=== PATIENT | male | born 1975 | race Caucasian/White ===

== ENCOUNTER → 2025-06-19 | Outpatient (CLI) | payer OTHER, SELFPAY ==
--- OUTSIDE RECORDS SUMMARY | 2025-06-19 07:32 | XMS RPT_ITS | CCD ---
Author Organization [facility] Care Team Providers Care Outsole Caser Name Role Phone [facility], [facility] A Unavailable Ronn Okeefe MD Unavailable [phone] Nikki Potts MD Primary Care Provider Nikki Potts MD Unavailable Nikki Potts MD Unavailable [facility], Chata A Unavailable [phone] Ronn Okeefe MD Unavailable [phone] Nikki Potts MD Primary Care Provider [facility], Chata Alex Unavailable [phone] Ronn Okeefe MD Unavailable Nikki Potts MD Primary Care Provider [phone] Nikki Potts MD Unavailable REFERRED, SELF Referring Unavailable CRISSY, REINALDO Attending Unavailable LUIS, NIKKI K Primary Care Unavailable CRISSY, REINALDO Referring Unavailable CRISSY, REINALDO Attending Unavailable LUIS, NIKKI K Primary Care Unavailable LUIS, NIKKI K Referring Unavailable LUIS NIKKI K Attending Unavailable NAM, INKKI K Primary Care Unavailable BALDIE, BRENNON Primary Care Unavailable BALDIE, BRENNON Attending Unavailable SELF Referring Unavailable BALDIE, BRENNON Primary Care Unavailable NEUMANN, EDWARD Attending Unavailable NEUMANN, EDWARD Attending Unavailable NEUMANN, EDWARD Attending Unavailable NEUMANN, EDWARD Attending Unavailable NEUMANN, EDWARD Attending Unavailable NEUMANN, EDWARD Admitting Unavailable NEUMANN, EDWARD Attending Unavailable BALDIE, BRENNON Primary Care Unavailable NEUMANN, EDWARD Attending Unavailable Medications Current Medications Medication Drug Class(es) Dates Sig (Normalized) Sig (Original) ascorbic acid 125 mg chewable tablet (11 sources) Vitamin C ascorbic acid, v itamin C, 125 mg chew Active Calcium Carbonate Antacid (TUMS PO) (6 sources) Calcium Carbonat e Antacid (TUMS PO) Take by mouth as needed. Active Calcium Carbonat e Antacid (TUMS PO) Take by mouth as needed. 0 Active calcium citrate/vitamin D3 ( CALCIUM CITRATE + D ORAL) (11 sources) calcium citrate/ vitamin D3 (CALCIUM CITRATE + D ORAL) Active calcium citrate/ vitamin D3 (CALCIUM CITRATE + D ORAL) [id number] 0.3 ml EPINEPHrine 1 mg/ml auto-injector (6 sources) alpha-Adrenergic Agonist, beta-Adrenergic Agonist, Catecholamine Start: 06-08-2019 EPINEPHrine 0.3 MG injection Inject 1 Auto-Injector (0.3 mg) into the muscle once as needed for Allergies 4 Each 1 06/08/2019 Active famotidine 20 mg oral tablet (5 sources) Histamine-2 Receptor Antagonist take 1 tablet by mouth twice daily famotidine (PEPCID) 20 mg tablet Take 20 mg by mouth two times a day. Active loratadine 10 mg oral tablet (13 sources) End: 07-30-2024 take 1 tablet by mouth once daily loratadine (CLARITIN) 10 MG tablet Take 10 mg by mouth daily. Active Comment on above: Take 10 mg by mouth. ofloxacin 3 mg/ml otic solution (5 sources) Quinolone Antimicrobial Start: 11-23-2024 ofloxacin (FLOXIN) 0.3 % otic solution Use 5 drops in both ears every other day. 10 mL 11/23/2024 Active Start: 07-21-2024 End: 08-18-2024 ofloxacin (FLOXIN) 0.3 % sujata c solution Use 5 Drops in the right ear two times a day for 28 days. 10 mL 2 07/21/2024 08/18/2024 Active ofloxacin (FLOXI N) 0.3 % otic solution Use 5 drops in both ears every other day. Active raNITIdine 150 mg oral tablet (6 sources) Histamine-2 Receptor Antagonist take 1 tablet by mouth once daily ranitidine (ZANTAC) 150 MG tablet Take 150 mg by mouth daily. Active Completed/Discontinued Medications Medication Drug Class(es) Dates Sig (Normalized) Sig (Original) omeprazole 20 mg delayed release oral capsule (13 sources) Proton Pump Inhibitor Start: 04-08-2022 End: 07-30-2024 take 1 capsule by mouth once daily omeprazole (PRILOSEC) 20 mg capsule Take 1 capsule by mouth once daily. 90 capsule 3 04/08/2022 07/30/2024 Discontinued (Course of therapy completed) End: 07-30-2024 omeprazole (PRILOSEC) 40 mg capsule 07/30/2024 Discontinued (Course of therapy completed) Comment on above: Take 1 capsule by [facility] once daily. polyethylene glycol 3350 [id number] mg / potassium chloride 2970 mg / sodium bicarbonate 6740 mg / sodium chloride 5860 mg / sodium sulfate 15513 mg powder for oral solution (5 sources) Osmotic Laxative Start: 10-02-2022 End: 07-30-2024 peg 3350-Electrolytes (GOLYTELY) 236-22.74-6.74 -5.86 gram suspension Refer to printed patient instructions that will be mailed to you. 1 Each 10/02/2022 07/30/2024 Discontinued (Course of therapy completed) Comment on above: Refer to printed pat ient instructions that will be mailed to you. Problems Active Problems Problem Classification Problem Date Documented Da te Episodic/Chronic Administrative/social admission (1 source) Persons encountering health services in other specified circumstances; Translations: [Encounter to establish care with new doctor] Onset: Episodic Calculus of urinary tract (1 source) Calculus of lower urinary tract; Translations: [Calculus of lower urinary tract, unspecified] 04-13-2024 Episodic Esophageal disorders (1 source) Gastroesophageal reflux disease; Translations: [Gastro-esophageal reflux disease without esophagitis] 01-21-2023 Chronic Immunizations and screening for infectious disease (1 source) Suspected disease caused by 2019-nCoV; Translations: [Suspected COVID-19 virus infection] Episodic Other acquired deformities (1 source) Scoliosis, unspecified; Translations: [Scoliosis of thoracolumbar spine, unspecified scoliosis type] Onset: 5 Chronic Other congenital anomalies (1 source) Other congenital malformations of upper limb(s), including shoulder girdle; Translations: [Cleidocranial dysplasia] Onset: 5 Chronic Other ear and sense organ disorders (1 source) Conductive hearing loss, unilateral, right ear with restricted hearing on the contralateral side; Translations: [Conductive hearing loss of right ear with restricted hearing of left ear] Onset: 5 Chronic Other ear and sense organ disorders (5 sources) Cholesteatoma of external ear; Translations: [Cholesteatoma of right external ear] 07-21-2024 Episodic Other ear and sense organ disorders (1 source) Impacted cerumen of bilateral ears; Translations: [Impacted cerumen, bilateral] 03-01-2025 Episodic Other ear and sense organ disorders (2 sources) Cholesteatoma of right external ear; Translations: [Cholesteatoma of right external ear] Onset: 5 Episodic Other ear and sense organ disorders (1 source) Impacted cerumen, left ear; Translations: [Impacted cerumen of left ear] Onset: 5 Episodic Other gastrointestinal disorders (5 sources) Esophageal dysphagia; Translations: [Other dysphagia] Episodic Other non-traumatic joint disorders (2 sources) Hip pain; Translations: [Pain in left hip] 02-26-2023 Episodic Other screening for suspected conditions (not mental disorders or infectious disease) (5 sources) Patient encounter status; Translations: [Encounter for screening for malignant neoplasm of colon] Onset: 5 Episodic Rheumatoid arthritis and related disease (1 source) Juvenile idiopathic arthritis; Translations: [Other juvenile arthritis, unspecified site] 04-13-2024 Chronic Screening and history of mental health and substance abuse codes (2 sources) Encounter for screening examination for other mental health and behavioral disorders; Translations: [Encounter for screening for depression] Onset: 5 Episodic Past or Other Problems Problem Classification Problem Date Documented Da te Episodic/Chronic NEGATED: Highlighted row has been ruled out!Unclassified (6 sources) No known active problems 06-09-2019 Results Test Name Value Interpretation Reference Range Facility CNOVon 04-26-2025 CNOV Office Visit (AGFAMP SS) -- FLAKITO AMAYA ([id number]) 1975 M Date Time Provider Department 04/26/25 10:40 AM BRENNON MORRELL During your visit today, we recorded the following information about you: Temperature Pulse Blood pressure Weight 97.9 degrees 72/minute 138/78 55.5 kg Height 1.575 m Brennon Morrell MD 04/26/2025 11:34 AM Signed - A community education coordinator will contact you to arrange your baseline DEXA (bone density) scan; if you do not hear from them within a few days, please call the scheduling center. - Get a fasting blood test (lipid panel, comprehensive metabolic panel, and complete blood count) two weeks before your next annual physical--fast except for water. - Return in one year for your annual physical and to review your lab results. - Plan your next colonoscopy in 10 years (your last exam was in 2022). - Receive one dose of pneumococcal vaccine (Pneumovax) now and begin the two-dose Shingrix (shingles) series--second dose in 2 to 6 months. - Aim for at least 2 liters (64 ounces) of water daily; for each hour of running or heavy sweating, drink an additional liter (two 16-ounce bottles). - Strive for 150 minutes of moderate-intensity activity (e.g., brisk walking) or 75 minutes of running each week, plus strength training on two days per week. Please feel free to reach out with any questions. Have a great day! 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 Flakito Amaya is a 49-year-old male with a history of cholesteatoma, EoE, and cleidocranial dysplasia, presenting for an initial visit to establish care. Cholesteatoma: - Diagnosed with cholesteatoma in the right ear canal, managed by Dr. Neumann, ENT, for about a year. - Undergoing debridement; condition has improved but still has a small patch of exposed bone. - Scheduled for OR on June 05 for bone removal and skin graft. - History of multiple ear surgeries, including 8 sets of tubes. Eosinophilic Esophagitis: - Previously diagnosed with EoE, managed by OCHOA García. - Released from follow-up by Dr. Foote. - Following a gluten-free and egg-free diet, reports feeling well on this diet. - Taking Pepcid. 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 - History of multiple extra teeth, including an impacted wisdom tooth causing periodic infections. - Underwent a procedure to clean out the area around the impacted tooth 3-4 years ago, with no issues since. - Concerned about osteonecrosis of the jaw due to bisphosphonate use. 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 - No current issues related to JRA. Lichen Planus: - Diagnosed with lichen planus, causing hair loss but no significant problems. Scoliosis: - Suspected scoliosis related to cleidocranial dysplasia, but no significant issues reported. - Son has severe scoliosis and underwent spinal fusion. Lifestyle: - Engages in trail running with his son, running 4-5 miles a couple of times a week. - Follows a diet primarily consisting of vegetables, fruits, and rice, avoiding animal products and gluten. - Drinks 6-8 glasses of water daily, with additional intake before running. - Takes vitamin D and calcium supplements, with a current vitamin D level of 70. Family: - with an 18-year-old daughter and a 16-year-old son. - Brother is a physician. COVID-19: - Received initial two-dose series of Moderna vaccine and one booster. - Contracted COVID-19 twice, most recently about a year ago. Review of Systems Skin: (+) alopecia PAST MEDICAL HISTORY Diagnosis Date Cleidocranial dysostosis AKA Cleidocranial dysplasia. 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 SOCIAL HISTORY[1] multivit,thx,calcium,iron, mins (MULTIVITAMIN AND MINERAL ORAL) Take 1 tablet by mouth once daily. 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 loratadine 10 mg cap as needed. calcium carbonate (TUMS 500 ORAL) Take by mouth as needed. famotidine (PEPCID) 20 (more content not included)... Normal [facility] CNOVon 04-06-2025 CNOV Office Visit (OTOLMN ) -- FLAKITO AMAYA ([id number]) 1975 M Date Time Provider Department 04/06/25 4:30 PM EMANUEL NEUMANN OTOLMN During your visit today, we recorded the following information about you: Emanuel Neumann MD 05/06/2025 2:39 PM Signed Neurotology Clinic - Return Visit Flakito Amaya He notes occasional discharge of wax or exudate during washing, but denies any changes in hearing since the last visit, stating it has improved on the right side. The patient has a complex otologic history, including multiple tympanostomy tube placements (approximately eight) and a previous tympanic membrane perforation last year secondary to a sinus infection, which was treated with antibiotics, resulting in resolution of purulent otorrhea. His last audiogram was in 2020. Objective: AANDO Ears: Right ear - EAC clear, Exposed bone remains present on anterior and inferior aspect of ear canal. Neuro - Cranial Nerves: Right CN 7 - HB 1 Left CN 7 - HB 1 Unlabored respirations, no audible respiratory sounds/stridor Skin well perfused PROCEDURE NOTE: Otomicroscopy A microscope was used to evaluate the ears. Micro-instruments (curettes and/or suction) were used to clean the ear canal and obtain a clear view of the tympanic membranes. All relevant findings are detailed in the Physical Exam findings as listed above. The patient tolerated the procedure well and there were no complications. 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 - Scheduled right-sided canaloplasty and split-thickness skin graft on June 05 at [place]. - Discussed procedure details, including smoothing of bone, possible small incision, and skin graft placement; explained that the procedure is expected to take less than 90 minutes. - Reviewed risks, including low risk to facial nerve, and use of facial nerve monitoring during surgery; patient expressed understanding and agreement with the plan. - Advised to keep ear dry postoperatively until follow-up; discussed expected recovery timeline and minimal expected drainage. - Follow-up appointment scheduled for a couple of weeks after surgery. # Conductive hearing loss of right ear with restricted hearing of left ear (H90.A11) No changes in hearing since last visit; improvement noted on the right side since starting treatment. CT scan of right ear shows a linear band of scar tissue from the incus past the IS joint, possibly contributing to conductive hearing loss. - Ordered audiogram prior to surgery; requisition provided. - Discussed possibility of middle ear exploration and tympanoplasty, but agreed to avoid additional procedures unless necessary. Emanuel Neumann III, MD Recording using [employer] software for draft documentation of the visit was discussed with the patient/authorized passenger service representative; all questions welcomed and answered. Patient/authorized passenger service representative agreed to proceed Allergies As of Date: 04/06/2025 (No Known Allergies) Date Reviewed: 04/06/2025 Reviewed by: Alka Lamas RN - Fully Assessed Reason for Visit: Follow Up [171] Cmt: Cholesteatoma Primary Visit Diagnosis:Cholesteatoma of right external auditory canal [H60.41] Other Visit Diagnosis:Conductive hearing loss of right ear with restricted hearing of left ear [H90.A11] Order(s):HEARING TEST/AUDIOGRAM [[id number]] Order #: [id number]: 1 FUTURE Prescriptions as of 05/06/2025 - multivit,thx,calcium,iron, mins (MULTIVITAMIN AND MINERAL ORAL) Take 1 tablet by mouth once daily. 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 - loratadine 10 mg cap as needed. - calcium carbonate (TUMS 500 ORAL) Take by mouth as needed. - ofloxacin (FLOXIN) 0.3 % otic solution Use 5 drops in both ears every other day. - famotidine (PEPCID) 20 mg tablet Take 20 mg by mouth two times a day. - ascorbic acid, vitamin C, 125 mg chew - calcium citrate/vitamin D3 (CALCIUM CITRATE + D ORAL) Problem List As Of Date: 04/06/2025 (None) Encounter Status:Closed by EMANUEL NEUMANN on 05/06/25 [facility] CNOVon 02-27-2025 CNOV Office Visit (OTOLMN ) -- FLAKITO AMAYA ([id number]) 1975 M Date Time Provider Department 02/27/25 2:00 PM EMANUEL NEUMANN OTOLMN During your visit today, we recorded the following information about you: Leni Nicholson RN 03/01/2025 4:07 AM Signed Tobacco Use: Never Was smoking cessation packet given? N/A - Patient is a non-smoker or quit >1 year ago. Was a referral initiated?N/A Patient is a non-smoker Emanuel Neumann MD 03/01/2025 4:07 AM Signed Neurotology Clinic - Return Visit Flakito Amaya 49 yo male with h/o cholesteatoma s/p previous tympanoplasty who was found to have an external auditory canal cholesteatoma. I have been treating him since July of 2024. Denies drainage, pain, changes in hearing. Has returned to swimming, has been using drops once daily. Objective: AANDO Ears: Area of exposed bone in right ear canal has decreased in size, about 4x 4 mm in size measured with curette. Area of crusted cerumen over bone removed, some purulence seen. Debrided over bone with curette. No evidence of canal cholesteatoma. Some evidence of bone cortex erosion worsening. Tm membrane intact. Ciprodex drops instilled. Left ear examined. Minimal cerumen removed. TM normal. Neuro - Cranial Nerves: Right CN 7 - HB 1 Left CN 7 - HB 1 Unlabored respirations, no audible respiratory sounds/stridor Skin well perfused PROCEDURE NOTE: Cerumen Debridement A microscope was used to evaluate the ears. The right ear was found to be impacted with CERUMEN. Micro-instruments (curettes and/or suction) were used to clean the ear canal and obtain a clear view of the tympanic membranes. All relevant findings are detailed in the Physical Exam findings as listed above. The patient tolerated the procedure well and there were no complications. 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 Bilateral cerumen impaction present. Stop daily drops Recommend 50/50 vinegar and water to wash out right ear, if painful dilute more. Follow up in 4-6 weeks, if evidence of continuing bony cortex erosion or no improvement, discussed would recommend going to OR to freshen bony edges and place skin graft (post auricular). We will put in case request now to hold slot for Estefanía. MD Amanda Cordero III, MD for the service of Emanuel Neumann MD I performed a history, reviewed bergman exam findings and diagnostic studies, and discussed management plan with the resident. I reviewed the resident's note and agree with the documented findings and plan of care. 4:05 AM 03/01/2025 MD Biuj Elmore Margaret M, MD 02/27/2025 2:50 PM Addendum Perform twice daily douches for the first week. Then perform once daily douches for the second week. Then perform a douche every other day for the third and fourth weeks. You have been asked to irrigate your ear. The irrigation cleans out debris and coats your ear with a mild acidic solution that is similar to your body's natural ear wax, which acts as a natural cleansing solution that will help your ear to heal and keep clean. Steps for irrigation: 1. Mix ordinary white distilled vinegar with an equal amount of warm tap water to give a 50:50 mixture. The temperature should be body temperature and feel warm to the skin, such as with a baby bottle (98.6 degrees F or 37 degrees C). If the temperature is not at body temperature the irrigation may make you dizzy. This is not dangerous and will pass quickly but may make you uncomfortable in the meantime. 2. Place the mixture into a rubber bulb syringe, such as the type used for cleaning infants' noses and mouths (this can easily be obtained at any pharmacy). Most syringes will hold 1 or [address] the nozzle of the syringe at the opening of your ear without inserting it deeply into the ear canal. A firm irrigation is appropriate without trying to be excessively forceful. Hold the ear to be rinsed DOWNWARD (unlike placing drops, in which case the ear is held upward), so that as you rinse your ear, the water and any debris will fall out of your ear. Use the entire contents of the bulb syringe, and then allow the ear to drip dry for a few seconds. 4. If you have also been prescribed ear drops, this is an excellent time to place them, since the ear has been cleaned. The ear can now be turned upwards and the ear drops placed. Allergies As of Date: 02/27/2025 (No Known Allergies) Date Reviewed: 02/27/2025 Reviewed by: Leni Nicholson RN - Fully Assessed Reason for Visit: Follow Up [171] Primary Visit Diagnosis:Cholesteatoma of right external auditory canal [H60.41] Other Visit Diagnosis:Bilateral impacted cerumen [H61.23] Order(s):SURGICAL REQUEST - ELECTIVE (02/2020) [[id number]] Order #: [id number]: 1 Prescriptions as of 03/01/2025 - ofloxacin (JACK (more content not included)... Normal [facility] Progress Noteon 02-15-2025 Windlasser Authentication Interface Message Text New Reason for Visit: Chief Complaint Patient presents with Knee Pain Right knee pain Allergies: Patient has no known allergies.. Medications: Encounter Medications[1] History of Present Illness Flakito Amaya is a 49 y.o. presenting with right knee pain Accompanied By: self Location of injury: medial joint line, pes anserine Mechanism: patient noticed pain during hiking then afterwards pain worsened Duration/Date: approximately 5 days Symptoms: pain, some grinding Worst Pain (0-10): Treatments:ice, intermittent ibuprofen, knee sleeve, elevation Images: none No LMP for male patient. Verbal consent obtained to use [facility]. 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 He experiences right knee pain that began during a hiking trip, initially triggered by descending a hill. The pain became more persistent, affecting both uphill and downhill movements, and was continuous by the last day of hiking, prompting him to limit his activity. The pain is located on the right knee with focal pain medially at the pes anserine and distal MCL region. He does not report swelling, instability, restricted motion, catching, or locking in the knee. He manages the pain with ibuprofen taken before bed, which effectively alleviates discomfort. In the days since he has returned from his trip, he has improved significantly, especially after some NSAIDs and rest, and today he is not endorsing any pain. His past medical history includes juvenile rheumatoid arthritis and skeletal dysplasia, which have not previously affected his right knee. He notes significant asymmetry and atrophy in his legs due to favoring his left leg, which has been more problematic in the past. He is physically active, engaging in running, and hiking. He typically runs on trails. Review of System: ROS Ht (!) 156.7 cm Wt 55.5 kg BMI 22.60 kg/m Physical Exam: Physical Exam Ortho Exam: Ortho Exam Right knee exam Inspection reveals no deformity, swelling, or ecchymosis. No overlying skin changes. Palpation: There is no tenderness to any bony or soft tissue structures. no crepitation. Range of motion: Passive and active range of motion is normal and pain free Strength: There is normal strength to flexion and extension. Knee is stable to valgus and varus stress without pain, stable on anterior/posterior drawer testing. Special testing: Negative Shanda's Negative Thessaly Negative Bounce test Negative Patellar compression/grind Negative Patellar apprehension Negative Yuli's Gait: Normal gait Radiographic Studies: 3 view x-rays of the right knee including weightbearing views were obtained in office today which I independently reviewed and interpreted. These do show some joint space narrowing, especially of the medial compartment, with mild osteophyte formation of the patella and some mild productive changes of the chondral surfaces of the femur, consistent with moderate degenerative changes. Assessment and Plan: Flakito was seen today for knee pain. Diagnoses and all orders for this visit: Right knee pain, unspecified chronicity - X-Ray Knee 3 Views Right Pes anserinus bursitis of right knee Primary osteoarthritis of right knee Overall reassuring exam and x-rays. Does have some degenerative changes seen on x-ray, with some joint space narrowing noted and mild osteophyte formation. 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 He localizes pain over the pes anserinus region, I suspect he had some tendon and/or bursal irritation from his activity. I don't think his degenerative changes are contributing significantly to his recent pain, there is no evidence of a degenerative meniscus tear or other internal derangement Patient Instructions: Patient Instructions Gradually resume activity as tolerated Can take ibuprofen for the next few days, then use only as needed Ice for the next few days Can do some gentle strengthening (bodyweight squats and lunges, hamstring isometrics) Follow up as needed Reinaldo Woodward MD 02/15/2025 4:23 PM [1] Outpatient Encounter Medications as of 02/15/2025 Medication Sig Dispense Refill EPINEPHrine 0.3 MG injection Inject 1 Auto-Injector (0.3 mg) into the muscle once as needed for Allergies 4 Each 1 loratadine (CLARITIN) 10 MG tablet Take 10 mg by mouth daily. ranitidine (ZANTAC) 150 MG tablet Take 150 mg by mouth daily. Calcium Carbonate Antacid (TUMS PO) Take by mouth as needed. No facility-administered encounter medications on file as of 02/15/2025. Normal [facility] XR Knee - right 3 Viewson IMPRESSION: No acute fracture identified. Mild degenerative changes in the medial and patellofemoral compartments. This report has been created using voice recognition software [facility] RADIOLOGY Ronn Tee MD - 02/15/2025 PROCEDURE: KNEE 3 VIEWS RIGHT CLINICAL HISTORY: knee pain COMPARISON: None. FINDINGS: There is no visible fracture. Mild osteophytosis in the patellofemoral compartment. Mild medial compartment joint space narrowing. Alignment is normal. There is no visible joint effusion. The soft tissues are radiographically normal. IMPRESSION: No acute fracture identified. Mild degenerative changes in the medial and patellofemoral compartments. This report has been created using voice recognition software [facility] Radiology Study observation (narrative) [facility] XR Knee - right 3 ViewsOrder ed By: Ronn Tee on 02-15-2025 [facility] Work Phone: CNOVon 12-12-2024 CNOV Office Visit (OTOLMN ) -- FLAKITO AMAYA ([id number]) 1975 M Date Time Provider Department 12/12/24 11:00 AM EMANUEL NEUMANN OTOLMN During your visit today, we recorded the following information about you: Diana Pulido MA 12/13/2024 12:46 PM Signed Tobacco Use: Never Was smoking cessation packet given? N/A - Patient is a non-smoker or quit >1 year ago. Was a referral initiated?N/A Patient is a non-smoker Emanuel Neumann MD 12/13/2024 12:46 PM Signed PROCEDURE NOTE: Otomicroscopy A microscope was used to evaluate the right ear. Micro-instruments (curettes and/or suction) were used to clean the ear canal and obtain a clear view of the tympanic membrane. Area of exposed bone in right ear canal has decreased in size. No evidence of worsening erosion or canal cholesteatoma. The patient tolerated the procedure well and there were no complications. Continue use of once daily ofloxacin to maintain a clean and moist environment. May return to swimming. Follow up in 3 months. 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 - famotidine (PEPCID) 20 mg tablet Take 20 mg by mouth two times a day. - ascorbic acid, vitamin C, 125 mg chew - calcium citrate/vitamin D3 (CALCIUM CITRATE + D ORAL) Problem List As Of Date: 12/12/2024 (None) Encounter Status:Closed by EMANUEL NEUMANN on 12/13/24 Normal [facility] CNOVon 10-10-2024 CNOV Office Visit (OTOLMN ) -- FLAKITO AMAYA ([id number]) 1975 M Date Time Provider Department 10/10/24 11:00 AM EMANUEL NEUMANN OTOLMN During your visit today, we recorded the following information about you: Leni Nicholson RN 10/11/2024 10:11 AM Signed Tobacco Use: Never Was smoking cessation packet given? N/A - Patient is a non-smoker or quit >1 year ago. Was a referral initiated?N/A Patient is a non-smoker Emanuel Neumann MD 10/11/2024 10:11 AM Signed Neurotology Clinic - Return Visit Flakito Amaya is a 48 year old male: Right sided canal cholesteatoma. Subjective: The right ear has felt better than it has in a long time. Objective: AANDO Ears: Right ear - EAC with interval epithelialization overlying areas of exposed bone. Surface area of exposed bone has decreased. No new bone destruction. TM intact no effusion or retraction. Neuro - Cranial Nerves: Right CN 7 - HB 1 Left CN 7 - HB 1 Unlabored respirations, no audible respiratory sounds/stridor Skin well perfused Procedure note - Otomicroscopy: A microscope was used to evaluate the ears. Micro-instruments - curettes and/or suction - were used to clean the ear canal and obtain a clear view of the tympanic membranes. All relevant findings are detailed in the physical exam findings as listed above. The patient tolerated the procedure well with no complications. I scraped exposed desiccated portions of exposed bone. Mupirocin applied to edge of exposed bone. Assessment: Right external auditory canal cholesteatoma. Improving. Plan: Continue application of ofloxacin drops every other day in 1 week. Begin daily applications of drops in one month. Return to see me in 2 months. 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 - famotidine (PEPCID) 20 mg tablet Take 20 mg by mouth two times a day. - ascorbic acid, vitamin C, 125 mg chew - calcium citrate/vitamin D3 (CALCIUM CITRATE + D ORAL) Problem List As Of Date: 10/10/2024 (None) Disposition: Return in about 2 months (around 12/10/2024). Follow-up and Disposition History for Encounter Date Provider Department Center 10/10/2024 [id number], EDWARD OTOLMN Main - A [facility] Encounter Status:Closed by EMANUEL NEUMANN on 10/11/24 [facility] CNOVon 08-11-2024 CNOV Office Visit (OTOLMN ) -- FLAKITO AMAYA ([id number]) 1975 M Date Time Provider Department 08/11/24 2:00 PM EMANUEL NEUMANN OTOLMN During your visit today, we recorded the following information about you: Jasmyne Pérez OCCA 08/16/2024 3:33 PM Signed Tobacco Use: Never Was smoking cessation packet given? N/A - Patient is a non-smoker or quit >1 year ago. Was a referral initiated?N/A Patient is a non-smoker Emanuel Neumann MD 08/16/2024 3:33 PM Signed Neurotology Clinic - Return Visit Flakito Amaya is a 48 year old male: Subjective: Hearing remains improved. Denies drainage or pain. Objective: AANDO Ears: Right ear - EAC with interval development of skin bridges overlying previously exposed bone. Bone of inferior canal remains exposed, but exposed area is smaller, TM intact no effusion or retraction Left ear - EAC clear, TM intact no effusion or retraction. Neuro - Cranial Nerves: Right CN 7 - HB 1 Left CN 7 - HB 1 Unlabored respirations, no audible respiratory sounds/stridor Skin well perfused Procedure note - Otomicroscopy: A microscope was used to evaluate the ears. Micro-instruments - curettes and/or suction - were used to clean the ear canal and obtain a clear view of the tympanic membranes. All relevant findings are detailed in the physical exam findings as listed above. The patient tolerated the procedure well with no complications. Assessment: Right sided canal cholesteatoma. No cholesteatoma identified. Skin appears to be healing over the areas of exposed bone. Plan: Return to clinic in 2 months for additional debridement. Keep ears dry. 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 - ofloxacin (FLOXIN) 0.3 % otic solution Use 5 Drops in the right ear two times a day for 28 days. - ascorbic acid, vitamin C, 125 mg chew - calcium citrate/vitamin D3 (CALCIUM CITRATE + D ORAL) Problem List As Of Date: 08/11/2024 (None) Encounter Status:Closed by EMANUEL NEUMANN on 08/16/24 Normal [facility] Bacteria identified Anaer cx Nom (Unsp spec)Ordered By: Lucretia Romano on 07-27-2024 Interpretation and review of laboratory results Normal [facility] Microorganism identified Cx Nom (Unsp spec) Negative [facility] This test was develo ped and its performance characteristics determined by the [facility]'s [facility] Pathology and Laboratory Medicine [place] (RT-PLMI). It has not been cleared or approved by the FDA. RT[facility] is regulated under CLIA as qualified to perform high-complexity testing. This test is used for clinical purposes. It should not be regarded as investigational or for research. [facility] SURGICAL PATHOLOGYOrdered By : Marla Whitley on 07-26-2024 Case Report Surgical Pathology R eport Case: [id number] Authorizing Provider: Emanuel Neumann MD Collected: 07/21/2024 12:38 PM Ordering Location: Otolaryngology Received: 07/21/2024 07:33 PM Pathologist: Marla Whitley MD Specimen: Ear, Right [facility] Work Phone: Clinical History t0csaIWkMWWmd5wsSTIx bGFuZz AySuYtAvNvZcx3SDGeakU9Keu7 ZDVqTElhmN4oDSWjKWbqG4ckyj FnhGCiGAVhWHm8oW8ulHscyY8a LoNoCfHxTGS3GMApopNxYdTaj9 6wRPUzs9Kln15jbS4cGYZpPHWs bmFsXHBhciB9 [facility] Work Phone: FINAL DIAGNOSIS q0pxbBUxXSTkaDTlUNpy Mlxhbn ZxKSMdgPFhA5XuazyiADsaQC3x EE4zyFfqqWJxaTAqPWHpTyZjz7 bof908zACbq0khEGXIqgvwmQs0 iEhmZ31lc4N1DaoyI77uwPWbGN T7QLQaQYFqtUPeZOHcMAI6WCJp eTEoA5nvDXOdTN6hzmqaARlyUZ drIBVgqGL9IMPglHSlG3XvOKBr MRgjMWYqckg2LaLmGn5cwLEcaJ cyMFxwYXJkXHBsYWluXGZzMjAg DQ6bGwowfLLbYRKpWBLptX1lQJ M9AFV7n32bVN6qCRKcR9n1EWR2 jGAmmpJbLHG4QDe7q6T0BVKjca AxYZQdeKOby2gvoptvrLBjZH6d N5YyptNpz7NyDTNtyUHvIUgoKw FlJ33qowYbVC5hRRFjDK4rNKFe qmPbDLRzbO72uOUgj8G0QL5qpZ JzZUFmrPfcvBo0gJIha1OkU2zl iIKcRMzumSovIg1mCYzwACO4pX UnqGf5FBSeOi9xII1zlBOiKZ7q F4XkooQbMYWfGXKfzdetBGVsj4 9xdAL8AJGye6o1fQSfbVYbf1Zk UKfov5Xdgsvwk1u4qZ3zdXVtLY SvdjDYZ9XdYUeojuYzdphvHgDw IDIwMjUgXHBhcn0= [facility] Work Phone: Gross Description f4netAGyHHUsgUTJADC9 MDFcYW 0hlKburYb5xJswXEFpjvO0rDEm ZXaan4qoAPZ6f9ncceKXXjdwYU RjSM7eVHflQELfXB8vJsZgXJAc ZmYxXHBhcGVydzEyMjQwXHBhcG FxrCI4VKGsNN2pwpviVHvoRQns HWImqlS8UDGdvHNjV2ArGMFrQE 4hdhvbINN9ASVORvhqEf4idQIe bHtcZjFcZmNoYXJzZXQwXGZzd2 sndtJKzindyDd3rY1SDCSvZ4Zu KE6Cs0bkZFHotJRjOHD0ITktv6 vjLDmlYRZ9CQEqYMEcWGFcXF1T OfSdVXqvWkS7PKPrAnS6HLu2RR SRMFAtGMEdJfZ5SHvdZBz1MNpi XFxuaCBcXHQgMSBcXGZsIFxcbm V3r4ptTUBkiEZqZYM1EUhep2ot UUsgRDX0OTDnWjTxEWYtYO5GXk DbODxjZwK0ODKvOfF6YXd0PQNV EvNfJmExOuD4MXc2EUGzWUk2UC s1MZgUSiOiFBg3Hdi5IZL5JAY3 NDMwNiBcXHQgMiBcXHNzIDMgXF ptyTCaDF1gsPvpFLChLS4LHFJd FOsjKXBsTtVhTD9dOLMjHFJHzE dodFxsdHJjaFxwYXIgDQpccGFy ZCANClxwbGFpblxsdHJjaFxmcz CeNAMnfZQRQSD2ZA8tLHPWGawh dHJwYXIgDQpcZnMyMCBMYWJlbG VkOiAiIEVhciwgcmlnaHQiXHBh gqKLFkFvP5PvpnEpByVFqlZqa0 YcWFgnvbuzQHLlQIeQqR9pFAXp g9KmyBqnx4NxOVWkHFlgXB67vw bxTJJbsRubwTJypFToEZ4FJ5Tk H6kiLQ8iTWnpUA9viN0obbhdSY 24YZmpTA5zAUnnVH3vYVJeBOCj pqJGLt94P90mOHdaALNsVA34Uq AedyY5UYvjqGCpHHDffxR3pqG1 XNVjaOZfUQ0SU1Npx7J9mFOaD0 8uFZsoBU61ZBnajBAciNJwsNH8 ITBcyAVxFPtvRXQKUCCzx6atg0 dpbmcgbGlnaHQgZGVjYWxjaWZp K3E6kT8qOmqiICXsOJfqLYTgek OMDgwlKZCiJJtJFhVCZL49GHU0 VCApLSByOAB5BSSzGaO7MWGSVN WiraGACoxmDILpDVzOcj8mhsUy lIHvtX8wrKqrhlCnYKCxj9UvVK SiPYOfQ2uuxwVnLX1mGZPqrN3h YywgOTUwMCBFdWNsaWQgQXZlLi nbM8bngiUwZK3cOPULAEI8VQS9 AOjtSOWpFJymn1VcNBrwkGlcLA ZuRxVoDKtiRODuW93nn0GUc7Ej h5jddQviw9IegRXaIN42YECnjX LyJGC9AE7ayKaiTHRsISkqjQRg UZHYCuidwmAtFK4HzC== [facility] Work Phone: Performing Lab q5zssMHbMSZdaVVcQiXs MDAwXG Kbx4ncVCOocBWtZgIqRqDlBeWt MitynDWtQOKvIuFhv3ahs954zU Dfp6ftPWQjLaA4iIEnUJLfeFMx O347NQCnKUnse9tqj0LnEHQmlO Ksg1G8OVNZpowyyVk3sUwwI62o o2J2ZyitL6rqXBLsANBmL6KxYW 1ePMJgVzq1EVZ0PYJ7SYXzFYBt L8VmZY3iPVPbdOOdLGi4u6buxO ndJKIqIGA2m7adBBokeqRyUE4d lc5ihHj8z4tlikToWIUeYAKnpO YNUOHnM6UpzVzgRd4syRs1qXlh TuteZTE7Mho9ZS1ytb42ccf1kM jvZVSbjdalEbW7BKlwZJTjgphm NHb4BYamFFAweUD1KXVezAErR3 ZdBYHaRI3krag2VXX5FVrvBGIb FyL7HAOvsRVmBJMgvDoiFLymn4 29SAZ7LdDuPW4cP6Lhf0K8eP6w yYYwHWSxhOJbHoRkFJWqny6ayF TaRRgds8QpMIU5dgY0uXPybDIy NMQwYD22Uymrx4UlXknay5HmA5 0vsBZ9IJoaw9yjSJ3yTgF5spEu KJiwc9szfC6fIyA8VBtqRZ5kHU 5xUNEdiA1vwzgoPMCuRcQlyexx WNKxxPjbpsRaMi5fxWszHBY1UA ufD4scjE0hMsW5IXnrC4gpcI5s KKx2APyoaOY9OPXtfS4uJV2ycd pgs2izDWvxWLopKXYrhnV5lxI7 HDUczLQvO2RrlP1qLWDgIZ1rlu vvm1rtAAQ2KFyvCMUySXV0JxDf KMPtw6Vvmtk6XbKis7GmyCOnMN qiL66qs817ZOPbxiMiB2oycRKz qjkaaTHcubdbFDairgC7XZHiif LkbHtruH8uPfIeMvDoQHqyMJ0x VIEiV7vjrEZnZAItATDfM0umEc TevF4rbDoxRTprmfGoNEWcHKfs i4A4dKUtrY09RINjyeQ2TUFiu5 1dvSKlTj0txMDrDSS3QfAJtCT3 MVqosaWlJ1navkcgHZ4wxL1kX3 GyhAGrJMyrv3HqpXSqIXlwHx9n YJPhnrwxZOi9BOOxLWJjiEyqYL R6KI88ZLvzRKOstnFZFfUsPKHa VMSsbXSgNUCHSIV3QXF5SCRuCW QMIZCuTNM2QDF2CYUnBPKkuEKa IPmmLPYaDBVuu8QvjQ1afWNOgI DdG1SjxateO4PzbAVbRGzvolEs Q9sqJNQAWPctvJTbehsgNXxcma RvUVcnksxcPETsNQevC6dsToIi SELwsZcgPGhyh1OfQTEbFIKhDs JccGFyfQ== [facility] Work Phone: [facility] Work Phone: BACTERIAL CULTURE AND GRAM S BIRD, TISSUEOrdered By: rBigitte Rodriguez on 07-25-2024 Bacteria identified Cx Nom (Tiss) Negative Abnormal [facility] Comment on above: No further workup Bacteria identified Cx Nom ( Tiss)Ordered By: Brigitte Rodriguez on 07-25-2024 Interpretation and review of laboratory results Abnormal [facility] Microscopic observation Smear Nom (Unsp spec) Positive Abnormal [facility] Microscopic observation Smear Nom (Unsp spec) No Polymorphonuclear Leukocytes Abnormal [facility] This test was develo ped and its performance characteristics determined by the [facility] [place] (RT-PLMI). It has not been cleared or approved by the FDA. -[facility] is regulated under CLIA as qualified to perform high-complexity testing. This test is used for clinical purposes. It should not be regarded as investigational or for research. [facility] Bacteria Spec Anaerobe Culto n 07-21-2024 Bacteria identified Anaer cx Nom (Unsp spec) Negative Normal [facility] Comment on above: Performed By: #### 6 35-3, 11638-3 ####[facility] LABCLIA [id number] [address] [place] Bacteria Tiss Culton 025 Bacteria identified Cx Nom (Tiss) ORGANISM ID: 1 Few Coagulase negative staphylococcus No further workup GRAM STAIN: Rare Gram positive cocci No Polymorphonuclear Leukocytes Abnormal [facility] Comment on above: Performed By: #### 6 35-3, 67515-3 ####[facility] CONSTANTINO [id number] [address] [place] CNOVon 07-21-2024 CNOV Office Visit (OTOLMN ) -- FLAKITO AMAYA ([id number]) 1975 M Date Time Provider Department 07/21/24 10:30 AM EMANUEL NEUMANN OTOLMN During your visit today, we recorded the following information about you: Leni Nicholson RN 07/30/2024 6:07 PM Signed Tobacco Use: Never Was smoking cessation packet given? N/A - Patient is a non-smoker or quit >1 year ago. Was a referral initiated?N/A Patient is a non-smoker Emanuel Neumann MD 07/30/2024 6:07 PM Signed SECTION OF OTOLOGY, NEUROTOLOGY AND LATERAL SKULL BASE SURGERY Head and Neck [place], [facility] Chief Complaint: Right ear discharge. 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 Cholesteatoma s/p few surgeries. Bone identified in right ear at time of last cleaning. CT temporal bone ordered. Past Medical History: He has a past medical history of Cleidocranial dysostosis, Eosinophilic esophagitis, Juvenile rheumatoid arthritis (HCC), and Lichen planus. Past Surgical History: He has a past surgical history that includes tympanoplasty and tonsillectomy hx. Social History: He reports that he has never smoked. He has never used smokeless tobacco. He reports that he does not drink alcohol and does not use drugs. Physical Exam: A comprehensive ear, nose, throat/head and neck exam was performed. Pertinent findings include: See nurse intake for vitals Ears: Right ear - Pinna normal EAC with a well epithelialized tunnel of the posterior cartilaginous canal. There is dried cerumen mixed with dried bone of the anterior canal TM intact no effusion or retraction. Left ear - Pinna normal EAC clear, TM intact no effusion or retraction. Neuro - Cranial Nerves: CN V - intact Right CN 7 - HB 1 Left CN 7 - HB 1 No dysphonia or dysarthria Shoulder and/or SCM strength normal Constitutional: Well appearing, typically developed, no acute distress Eyes: extra-ocular muscles intact, sclera white, pupils grossly symmetric Lymphatic: no visible cervical lymphadenopathy Respiratory: unlabored breathing with no grossly audible stridor or wheezing Skin: no obvious skin lesions of visible skin of face, neck PROCEDURE NOTE: Cerumen Debridement A microscope was used to evaluate the ears. The RIGHT ear was found to be impacted with CERUMEN. Micro-instruments (curettes and/or suction) were used to clean the ear canal and obtain a clear view of the tympanic membranes. All relevant findings are detailed in the Physical Exam findings as listed above. The patient tolerated the procedure well and there were no complications. Audiogram (personally reviewed and interpreted): No audiogram to review. Imaging (personally reviewed and interpreted): CT Temp Bones: Interpretation: Sclerotic mastoid. Erosion of the ear canal. Devitalized bone of the anterior inferior canal wall. Assessment: Right sided external auditory canal cholesteatoma. Plan: Cholesteatoma was extensively debrided in the office today. Ofloxacin drops: 5 drops to right ear every 12 hours for 28 days. Surgical pathology, gram stain and culture on removed bone. Return to clinic in 3-4 weeks for repeat debridement. 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 #:[id number] BACTERIAL CULTURE AND GRAM STAIN, TISSUE [SQTISCUL] Order #: [id number] FUTURE BACTERIAL CULTURE AND GRAM STAIN, TISSUE [SQTISCUL] Order #: [id number]. #:[id number] BACTERIAL CULTURE, TISSUE AND WOUND, ANAEROBIC [SQANACUL] Reflex Order#: [id number] (Ord#:[id number])Spec. #:[id number] Prescriptions as of 07/30/2024 - famotidine (PEPCID) 20 mg tablet Take 20 mg by mouth two times a day. - ofloxacin (FLOXIN) 0.3 % otic solution Use 5 Drops in the right ear two times a day for 28 days. - ascorbic acid, vitamin C, 125 mg chew - calcium citrate/vitamin D3 (CALCIUM CITRATE + D ORAL) Problem List As Of Date: 07/21/2024 (None) Prescriptions ordered this encounter Disp Refills Start End OFLOXACIN 0.3 % EAR DROPS 10 mL 2 07/21/2024 08/18/2024 Route: RIGHT EAR Sig: Use 5 Drops in the right ear two times a day for 28 days. Medications Discontinued (more content not included)... Normal [facility] SURGICAL PATHOLOGYon 025 CASE REPORT Normal [facility] Comment on above: Order Comment: Speci men Type: TISSUE SPECIMENOrdering Facility: [facility] Address: [address] [place] [address] Result Comment: Surg [facility] Pathology Report Case: [id number] Authorizing Provider: Emanuel Neumann MD Collected: 07/21/2024 12:38 PM Ordering Location: Otolaryngology Received: 07/21/2024 07:33 PM Pathologist: Marla Whitley MD Specimen: Ear, Right Performed By: #### S ####[facility] LABCLIA [id number] [place] [address] [place] CLINICAL HISTORY years of bone erosio n in ear canal Normal [facility] Comment on above: Order Comment: Speci men Type: TISSUE SPECIMENOrdering Facility: [facility] Address: [address] [place], [place] [id number] Performed By: #### S ####[facility] LABCLIA [id number] [address] FINAL DIAGNOSIS Normal [facility] Comment on above: Order Comment: Speci men Type: TISSUE SPECIMENOrdering Facility: [facility] Address: [address] [place] [address] Result Comment: A. R ight ear, cholesteatoma of right external auditory canal, excision: - Scant superficial fragments of bland parakeratotic squamous epithelium associated with focal devitalized bone. - Granular debris associated with microbial overgrowth. LILIAN July 26, 2024 Performed By: #### S ####[facility] LABCLIA [id number] [address] [place] FINAL PERFORMING LAB Normal [facility] Comment on above: Order Comment: Speci men Type: TISSUE SPECIMENOrdering Facility: [facility] Address: [address] [place] [address] Result Comment: Diag nostic interpretation performed at: [facility], [address] [place] [address] CLIA# [id number] Assurance Services Manager Health Care: Javier Pichardo MD Performed By: #### S ####[facility] LABCLIA [id number] [address] OF [place] GROSS DESCRIPTION A. Ear, Right Normal [facility] Comment on above: Order Comment: Speci men Type: TISSUE SPECIMENOrdering Facility: [facility] Address: [address] [place] [address] Result Comment: Labtrisha led: Ear, right Received: In formalin Number of tissue fragments: Multiple Specimen dimensions: 0.7 x 0.3 x 0.2 cm Mucosa: Absent; almendarez-white, indurated Cassette Code: Totally submitted labeled A1 following light decalcification. LG July 24, 2024 10:26 AM Gross examination performed at [address] [place] [address] Performed By: #### S ####[facility] LABCLIA [id number] [facility] [id number] [place] [facility] COMPLETE BLOOD COUNT WITH DI FFERENTIALon 04-13-2024 Basophils (Bld) [#/Vol] 0.06 10*3/uL Normal 0.02-0.06 [facility] [facility] Comment on above: Order Comment: Relea se to patient->Automatic Performed By: #### 1 001 #### IOANA RUIZ W ([id number]) [facility] ([facility]) ONE [address] Basophils/100 WBC (Bld) 1.1 % High 0.3-1.0 [facility] Comment on above: Order Comment: Relea se to patient->Automatic Performed By: #### 1 001 #### IOANA BACCON W ([id number]) [facility] ([facility]) ONE [address] Eosinophils (Bld) [#/Vol] 0.17 10*3/uL Normal 0.04-0.31 [facility] Comment on above: Order Comment: Relea se to patient->Automatic Performed By: #### 1 001 #### IOANA BACCON W ([id number]) [facility] ([facility]) ONE [address] Eosinophils/100 WBC (Bld) 3.2 % Normal 0.7-4.6 [facility] Comment on above: Order Comment: Relea se to patient->Automatic Performed By: #### 1 001 #### IOANA BACCON W ([id number]) [facility] ([facility]) ONE [address] Erythrocyte distribution width (RBC) [Ratio] 12.6 % Normal 11.9-13.5 [facility] Comment on above: Order Comment: Relea se to patient->Automatic Performed By: #### 1 001 #### IOANA BACCON W ([id number]) [facility] ([facility]) ONE [address] Hematocrit (Bld) [Volume fraction] 41.5 % Normal 40.6-50.2 [facility] Comment on above: Order Comment: Relea se to patient->Automatic Performed By: #### 1 001 #### IOANA Guzman ([id number]) [facility] [email or web address] ([facility]) [address] Hemoglobin (Bld) [Mass/Vol] 14.2 g/dL Normal 13.5-17.0 [facility] Comment on above: Order Comment: Relea se to patient->Automatic Performed By: #### 1 001 #### IOANA Guzman ([id number]) [facility] ([facility]) ONE [address] Immature granulocytes/100 WBC (Bld) 0.2 % Normal 0.2-0.5 [facility] Comment on above: Order Comment: Relea se to patient->Automatic Result Comment: Maddi ture Granulocyte Percent includes promyelocytes, myelocytes,and metamyelocytes. IG% > 1.0 indicates a left shift is present. With automated differentials, bands are included in the neutrophil count and not in the Immature Granulocyte Percent. Performed By: #### 1 001 #### IOANA Guzman ([id number]) [facility] [email or web address] ([facility]) ONE [address] Lymphocytes (Bld) [#/Vol] 1.96 10*3/uL Normal 1.39-2.72 [facility] Comment on above: Order Comment: Relea se to patient->Automatic Performed By: #### 1 001 #### IOANA Guzman ([id number]) [facility] [email or web address] ([facility]) [address] Lymphocytes/100 WBC (Bld) 36.6 % Normal 20.0-42.9 [facility] Comment on above: Order Comment: Relea se to patient->Automatic Performed By: #### 1 001 #### IOANA Guzman ([id number]) [facility] ([facility]) ONE [address] MCH (RBC) [Entitic mass] 31.3 pg High 27.3-31.2 [facility] Comment on above: Order Comment: Relea se to patient->Automatic Performed By: #### 1 001 #### IOANA Guzman ([id number]) [facility] ([facility]) [address] MCHC 34.2 % Normal 32.1-34.8 [facility] Comment on above: Order Comment: Relea se to patient->Automatic Performed By: #### 1 001 #### IOANA RUIZ W ([id number]) [facility] ([facility]) [address] MCV (RBC) [Entitic vol] 91.4 fL Normal 82.8-92.0 [facility] Comment on above: Order Comment: Relea se to patient->Automatic Performed By: #### 1 001 #### IOANA Guzman ([id number]) [facility] ([facility]) ONE [address] Monocytes (Bld) [#/Vol] 0.43 10*3/uL Normal 0.38-0.83 [facility] Comment on above: Order Comment: Relea se to patient->Automatic Performed By: #### 1 001 #### IOANA RUIZ W ([id number]) [facility] ([facility]) ONE [address] Monocytes/100 WBC (Bld) 8.0 % Normal 6.5-11.5 [facility] Comment on above: Order Comment: Relea se to patient->Automatic Performed By: #### 1 001 #### IOANA RUZI W ([id number]) [facility] ([employer] [address] [place] Neutrophils (Bld) [#/Vol] 2.73 10*3/uL Normal 2.07-6.00 [facility] Comment on above: Order Comment: Relea se to patient->Automatic Performed By: #### 1 001 #### IOANA RUIZ W ([id number]) [facility] ([employer] [address] [place] Neutrophils/100 WBC (Bld) 50.9 % Normal 43.5-69.0 [facility] Comment on above: Order Comment: Relea se to patient->Automatic Performed By: #### 1 001 #### IOANA Guzman ([id number]) [facility] ([facility]) ONE [address] Nucleated RBC/100 WBC (Bld) [Ratio] 0.0 % Normal 0.0-0.0 [facility] Comment on above: Order Comment: Relea se to patient->Automatic Performed By: #### 1 001 #### IOANA Guzman ([id number]) [facility] ([facility]) [address] Platelet mean volume (Bld) [Entitic vol] 12.7 fL High 9.6-11.8 [facility] Comment on above: Order Comment: Relea se to patient->Automatic Performed By: #### 1 001 #### IOANA Guzman ([id number]) [facility] ([facility]) ONE [address] Platelets (Bld) [#/Vol] 169 10*3/uL Normal 150-400 [facility] Comment on above: Order Comment: Relea se to patient->Automatic Performed By: #### 1 001 #### IOANA Guzman ([id number]) [facility] ([facility]) ONE [address] RBC 4.54 10E12/L Low 4.59-5.58 [facility] Comment on above: Order Comment: Relea se to patient->Automatic Performed By: #### 1 001 #### IOANA Guzman ([id number]) [facility] ([facility]) ONE [address] WBC (Bld) [#/Vol] 5.4 10*3/uL Normal 4.5-9.6 [facility] Comment on above: Order Comment: Relea se to patient->Automatic Performed By: #### 1 001 #### IOANA Guzman ([id number]) [facility] ([facility]) [address] COMPREHENSIVE METABOLIC PANE Dean 04-13-2024 Albumin [Mass/Vol] 4.4 g/dL Normal 3.5-5.0 [facility] Comment on above: Order Comment: Relea se to patient->Automatic Result Comment: Veri fied By: [id number] Performed By: #### 3 834 #### IOANA RUIZ W ([id number]) [facility] ([employer] [address] [place] ALP [Catalytic activity/Vol] 89 U/L Normal 40-129 [facility] Comment on above: Order Comment: Relea se to patient->Automatic Result Comment: Veri fied By: [id number] Performed By: #### 3 834 #### IOANA RUZI W ([id number]) [facility] ([employer]) [place] [address] [place] ALT [Catalytic activity/Vol] 13 U/L Normal <=46 [facility] Comment on above: Order Comment: Relea se to patient->Automatic Result Comment: Veri fied By: [id number] Performed By: #### 3 834 #### IOANA RUIZ W ([id number]) [facility] ([employer] [address] [place] AST [Catalytic activity/Vol] 22 U/L Normal <=37 [facility] Comment on above: Order Comment: Relea se to patient->Automatic Result Comment: Veri fied By: [id number] Performed By: #### 3 834 #### IOANA RUIZ W ([id number]) [facility] ([employer] [address] [place] BILI,TOTAL 0.3 mg/dL Normal <=1.0 [facility] Comment on above: Order Comment: Relea se to patient->Automatic Result Comment: Veri fied By: [id number] Performed By: #### 3 834 #### IOANA BACGANGA W ([id number]) [facility] ([employer] [place] [address] [place] Calcium [Mass/Vol] 9.3 mg/dL Normal 7.6-11.0 [facility] Comment on above: Order Comment: Relea se to patient->Automatic Result Comment: Veri fied By: [id number] Performed By: #### 3 834 #### IOANA BACCON W ([id number]) [facility] ([employer] [address] [place] Chloride [Moles/Vol] 101 mmol/L Normal 96-108 [facility] Comment on above: Order Comment: Relea se to patient->Automatic Result Comment: Veri fied By: [id number] Performed By: #### 3 834 #### IOANA BACCON W ([id number]) [facility] ([employer] [address] [place] CO2 [Moles/Vol] 27.2 mmol/L Normal 22.0-29.0 [facility] Comment on above: Order Comment: Relea se to patient->Automatic Result Comment: Veri fied By: [id number] Performed By: #### 3 834 #### IOANA BACCON W ([id number]) [facility] ([employer] [address] [place] Creatinine [Mass/Vol] 0.62 mg/dL Low 0.70-1.20 [facility] Comment on above: Order Comment: Relea se to patient->Automatic Result Comment: Veri fied By: [id number] Performed By: #### 3 834 #### IOANA California Arts CouncilCON W ([id number]) [facility] ([employer] [address] [place] GFR/1.73 sq M.predicted among non-blacks MDRD (S/P/Bld) [Vol rate/Area] mL/min/{1.73_m2} Normal >=60 [facility] Comment on above: Order Comment: Relea se to patient->Automatic Performed By: #### 3 834 #### IOANA BACCON W ([id number]) [facility] ([employer] [address] [place] Glucose [Mass/Vol] 98 mg/dL Normal 70-99 [facility] Comment on above: Order Comment: Relea se to patient->Automatic Result Comment: Crit eria for Diagnosis of Diabetes: Fasting Specimen (no caloric intake for at least 8 hours): <100 mg/dL Normal 100-125 mg/dL Increased risk for Diabetes >125 mg/dL Diagnostic for Diabetes Random Glucose (any time of day without regard to last meal): > or = 200 mg/dL plus Classic Symptoms of Diabetes Verified By: [id number] Performed By: #### 3 834 #### IOANA Guzman ([id number]) [facility] [address] Potassium [Moles/Vol] 4.1 mmol/L Normal 3.3-5.1 [facility] Comment on above: Order Comment: Relea se to patient->Automatic Result Comment: Veri fied By: [id number] Performed By: #### 3 834 #### IOANA Guzman ([id number]) [facility] ([facility]) [address] Protein [Mass/Vol] 6.9 g/dL Normal 5.9-8.4 [facility] Comment on above: Order Comment: Relea se to patient->Automatic Result Comment: Veri fied By: [id number] Performed By: #### 3 834 #### IOANA RUIZ W ([id number]) [facility] ([facility]) [address] Sodium [Moles/Vol] 138 mmol/L Normal 133-145 [facility] Comment on above: Order Comment: Relea se to patient->Automatic Result Comment: Veri fied By: [id number] Performed By: #### 3 834 #### IOANA RUIZ W ([id number]) [facility] ([facility]) [address] Urea nitrogen [Mass/Vol] 5 mg/dL Normal 4-19 [facility] Comment on above: Order Comment: Relea se to patient->Automatic Result Comment: Veri fied By: [id number] Performed By: #### 3 834 #### IOANA RUIZ W ([id number]) [facility] ([employer]) [place] [address] [place] Complete Blood Count with Di fferentialOrdered By: Deborah Lovelace on 04-13-2024 Basophils (Bld) [#/Vol] 0.06 10*3/uL [facility] Basophils/100 WBC (Bld) 1.1 % High 0.3 - 1.0 % [facility] Eosinophils (Bld) [#/Vol] 0.17 10*3/uL [facility] Eosinophils/100 WBC (Bld) 3.2 % 0.7 - 4.6 % [facility] Erythrocyte distribution width (RBC) [Ratio] 12.6 % 11.9 - 13.5 % [facility] Hematocrit (Bld) [Volume fraction] 41.5 % 40.6 - 50.2 % [facility] Hemoglobin (Bld) [Mass/Vol] 14.2 g/dL 13.5 - 17.0 g/dL [facility] Immature granulocytes/100 WBC (Bld) 0.2 % 0.2 - 0.5 % [facility] Comment on above: Immature Granulocyte Percent includes promyelocytes, myelocytes,and metamyelocytes. IG% > 1.0 indicates a left shift is present. With automated differentials, bands are included in the neutrophil count and not in the Immature Granulocyte Percent. Interpretation and review of laboratory results Abnormal [facility] Lymphocytes (Bld) [#/Vol] 1.96 10*3/uL [facility] Lymphocytes/100 WBC (Bld) 36.6 % 20.0 - 42.9 % [facility] MCH (RBC) [Entitic mass] 31.3 pg High 27.3 - 31.2 pg [facility] MCHC (RBC) [Mass/Vol] 34.2 % 32.1 - 34.8 % [facility] MCV (RBC) [Entitic vol] 91.4 fL 82.8 - 92.0 fL [facility] Monocytes (Bld) [#/Vol] 0.43 10*3/uL [facility] Monocytes/100 WBC (Bld) 8 % 6.5 - 11.5 % [facility] Neutrophils (Bld) [#/Vol] 2.73 10*3/uL [facility] Neutrophils/100 WBC (Bld) 50.9 % 43.5 - 69.0 % [facility] Nucleated RBC/100 WBC (Bld) [Ratio] 0 % 0.0 - 0.0 % [facility] Platelet mean volume (Bld) [Entitic vol] 12.7 fL High 9.6 - 11.8 fL [facility] Platelets (Bld) [#/Vol] 169 10*3/uL [facility] RBC (Bld) [#/Vol] 4.54 10*6/uL Low [facility] WBC (Bld) [#/Vol] 5.4 10*3/uL [facility] Comprehensive metabolic pane lOrdered By: Background Lab on 04-13-2024 Albumin BCG dye [Mass/Vol] 4.4 g/dL 3.5 - 5.0 g/dL [facility] Comment on above: Verified By: [id number] ALP [Catalytic activity/Vol] 89 U/L 40 - 129 U/L [facility] Comment on above: Verified By: [id number] ALT With P-5'-P [Catalytic activity/Vol] 13 U/L [facility] - 46 U/L [facility] Comment on above: Verified By: [id number] AST With P-5'-P [Catalytic activity/Vol] 22 U/L [facility] - 37 U/L [facility] Comment on above: Verified By: [id number] Bilirubin [Mass/Vol] 0.3 mg/dL [facility]/dL [facility] Comment on above: Verified By: [id number] Calcium [Mass/Vol] 9.3 mg/dL 7.6 - 11. 0 mg/dL [facility] Comment on above: Verified By: [id number] Chloride [Moles/Vol] 101 mmol/L 96 - 10 8 mmol/L [facility] Comment on above: Verified By: [id number] Creatinine [Mass/Vol] 0.62 mg/dL Low 0.70 - 1.20 mg/dL [facility] Comment on above: Verified By: [id number] eGFR - PINF [facility] Glucose [Mass/Vol] 98 mg/dL 70 - 99 mg/dL [facility] Comment on above: Criteria for Diagnos is of Diabetes: Fasting Specimen (no caloric intake for at least 8 hours): <100 mg/dL Normal 100-125 mg/dL Increased risk for Diabetes >125 mg/dL Diagnostic for Diabetes Random Glucose (any time of day without regard to last meal): > or = 200 mg/dL plus Classic Symptoms of Diabetes Verified By: [id number] HCO3 (P) [Moles/Vol] 27.2 mmol/L 22.0 - 29.0 mmol/L [facility] Comment on above: Verified By: [id number] Interpretation and review of laboratory results Abnormal [facility] Potassium (BldA) [Moles/Vol] 4.1 mmol/L 3.3 - 5.1 mmol/L [facility] Comment on above: Verified By: [id number] Protein [Mass/Vol] 6.9 g/dL 5.9 - 8.4 g/dL [facility] Comment on above: Verified By: [id number] Sodium [Moles/Vol] 138 mmol/L 133 - 145 mmol/L [facility] Comment on above: Verified By: [id number] Urea nitrogen [Mass/Vol] 5 mg/dL 4 - 19 mg/dL [facility] Comment on above: Verified By: [id number] LIPID PANELon 04-13-2024 Cholesterol [Mass/Vol] 138 mg/dL Normal <=199 [facility] Comment on above: Order Comment: Relea se to patient->Automatic Result Comment: Acce ptable (mg/dL): <200 Borderline-High (mg/dL): 200-239 High (mg/dL): > or = 240 Recommendations of the NCEP Adult Treatment Panel for the risk cut-off thresholds for the [place] Population. Verified By: [id number] Performed By: #### 2 070 #### IOANA Guzman ([id number]) [facility] [address] Cholesterol in LDL [Mass/Vol] 56 mg/dL Normal <=129 [facility] Comment on above: Order Comment: Relea se to patient->Automatic Result Comment: Veri fied By: [id number] Performed By: #### 2 070 #### IOANA Guzman ([id number]) [facility]) [address] HDL Chol 71 MG/DL Normal [facility] Comment on above: Order Comment: Relea se to patient->Automatic Result Comment: Low (mg/dL): <40 Borderline-Low (mg/dL): 40-60 Acceptable (mg/dL): >60 Verified By: [id number] Performed By: #### 2 070 #### IOANA Gzuman ([id number]) [facility] ([facility]) [address] Non-HDL Cholesterol 67 mg/dL Normal <=129 [facility] Comment on above: Order Comment: Relea se to patient->Automatic Result Comment: Veri fied By: [id number] Performed By: #### 2 070 #### IOANA Guzman ([id number]) [facility] ([facility]) [address] Triglyceride [Mass/Vol] 58 mg/dL Normal <=149 [facility] Comment on above: Order Comment: Relea se to patient->Automatic Result Comment: Acce ptable (mg/dL): <150 Borderline-High (mg/dL): 150-199 High (mg/dL): > or = 200 Verified By: [id number] Performed By: #### 2 070 #### IOANA Guzman ([id number]) [facility] ([facility]) [address] Lipid panelon 04-13-2024 Cholesterol [Mass/Vol] 138 mg/dL NINF - 199 mg/dL [facility] Comment on above: Acceptable (mg/dL): <200 Borderline-High (mg/dL): 200-239 High (mg/dL): > or = 240 Recommendations of the NCEP Adult Treatment Panel for the risk cut-off thresholds for the [place] Population. Verified By: [id number] Cholesterol in HDL [Mass/Vol] 71 mg/dL MG/DL [facility] Comment on above: Low (mg/dL): <40 Borderline-Low (mg/dL): 40-60 Acceptable (mg/dL): >60 Verified By: [id number] Cholesterol in LDL [Mass/Vol] 56 mg/dL NINF - 129 mg/dL [facility] Comment on above: Verified By: [id number] Cholesterol non HDL [Mass/Vol] 67 mg/dL NINF - 129 mg/dL [facility] Comment on above: Verified By: [id number] Triglyceride [Mass/Vol] 58 mg/dL NINF - 149 mg/dL [facility] Comment on above: Acceptable (mg/dL): <150 Borderline-High (mg/dL): 150-199 High (mg/dL): > or = 200 Verified By: [id number] No Panel InformationOrdered By: Background Lab on 04-13-2024 [facility] PROSTATE SPECIFIC ANTIGENon 04-13-2024 Prostate Specific Antigen 0.74 ng/mL Normal <= 3.5 [facility] Comment on above: Order Comment: Relea se to patient->Automatic Result Comment: ADDITIONAL INFORMATION The testing method is an electrochemiluminescence assay manufactured by [employer] and performed on the Modular or Cheli system. Values obtained with different assay methods or kits may be different and cannot be used interchangeably. Test results cannot be interpreted as absolute evidence for the presence or absence of malignant disease. Test Performed by: [facility] [address] [place] [address] Marketing Outreach Coordinator: Atul Joseph Ph.D.; CLIA# [id number] Performed By: #### 3 315 #### [facility] , VITAMIN D 25 HYDROXY(VITAMIN D DEFICIENCY)on 04-13-2024 25 [place] Vitamin D 67 ng/mL Normal 30-100 [facility] Comment on above: Order Comment: Relea se to patient->Automatic Result Comment: Refe rence ranges provided by [facility] are based on Endocrine Society Guidelines: Level: Characterization < 21 ng/mL: Vitamin D deficiency 21-29 ng/mL: Suboptimal Vitamin D status 30-100 ng/mL: Optimal Vitamin D status >100 ng/mL: Potentially toxic Vitamin D effects Performed By: #### 8 210 #### IOANA Guzman ([id number]) [facility] [email or web address] ([place]) [place] [address] [facility] Vitamin D 25 hydroxyon 04-13 Interpretation and review of laboratory results Normal [facility] Vitamin D+Metabolites [Mass/Vol] 67 ng/mL 30 - 100 ng/mL [facility] Comment on above: Reference ranges pro vided by [facility] are based on Endocrine Society Guidelines: Level: Characterization < 21 ng/mL: Vitamin D deficiency 21-29 ng/mL: Suboptimal Vitamin D status 30-100 ng/mL: Optimal Vitamin D status >100 ng/mL: Potentially toxic Vitamin D effects [facility] C-reactive proteinon 023 CRP [Mass/Vol] mg/L 0.0 - 1.0 mg/dL [facility] Comment on above: CRP determinations i n neonates should be interpreted with caution. CRP may be elevated in circumstances not associated with inflammation (e.g. difficult delivery, pneumothorax). In premature neonates CRP levels may not rise to abnormal levels even if sepsis is present; some speculate that immature liver function decreases the ability to generate a CRP response. Complete Blood Count with Di fferentialon 02-26-2023 Basophils/100 WBC (Bld) 1.00 % 0.00 - 1.00 % [facility] Differential Complete Automated [facility] Eosinophils/100 WBC (Bld) 1.30 % 0.00 - 3.00 % [facility] Erythrocyte distribution width (RBC) [Ratio] 12.3 % 0.0 - 14.4 % [facility] Hematocrit (Bld) [Volume fraction] 43.1 % 41.0 - 50.0 % [facility] Hemoglobin (Bld) [Mass/Vol] 15.0 g/dL 13.5 - 16.5 g/dl [facility] Immature granulocytes/100 WBC (Bld) 0.30 % [facility] Comment on above: Immature Granulocyte Percent includes promyelocytes, myelocytes, and metamyelocytes. IG% > 1.0 indicates a left shift is present. With automated differentials, bands are included in the neutrophil count and not in the Immature Granulocyte Percent. Interpretation and review of laboratory results Abnormal [facility] Lymphocytes/100 WBC (Bld) 37.3 % 24.0 - 44.0 % [facility] MCH (RBC) [Entitic mass] 31.3 pg 26.0 - 34.0 pg [facility] MCHC 34.8 % 31.0 - 37.0 % [facility] MCV (RBC) [Entitic vol] 90.0 fL 80.0 - 100.0 fl [facility] Monocytes/100 WBC (Bld) 6.70 % High 3.00 - 6.00 % [facility] MPV Not Available fl [facility] Comment on above: MPV is platelet range and age dependent Neutrophils (Bld) [#/Vol] 3.4 10*3/uL [facility] Neutrophils/100 WBC (Bld) 53.4 % 35.0 - 66.0 % [facility] Nucleated RBC/100 WBC (Bld) [Ratio] 0.0 % -1.0 - 0.0 % [facility] Platelets (Bld) [#/Vol] 188 10*3/uL [facility] RBC (Bld) [#/Vol] 4.79 10*6/uL [facility] WBC (Bld) [#/Vol] 6.3 10*3/uL [facility] Comprehensive metabolic pane dean 02-26-2023 Albumin [Mass/Vol] 4.8 g/dL 3.5 - 5.0 g/dL [facility] ALP [Catalytic activity/Vol] 74 U/L 40 - 129 U/L [facility] ALT [Catalytic activity/Vol] 8 U/L 0 - 46 U/L [facility] AST [Catalytic activity/Vol] 19 U/L 0 - 37 U/L [facility] Bilirubin [Mass/Vol] 0.3 mg/dL [facility] Calcium [Mass/Vol] 9.6 mg/dL 7.6 - 11. 0 mg/dL [facility] Chloride [Moles/Vol] 102 mmol/L 96 - 10 8 mmol/L [facility] CO2 [Moles/Vol] 28.4 mmol/L 22.0 - 29.0 mmol/L [facility] Creatinine [Mass/Vol] 0.61 mg/dL Low 0.70 - 1.20 mg/dL [facility] Glucose [Mass/Vol] 88 mg/dL 70 - 99 mg/dL [facility] Comment on above: Criteria for Diagnos is of Diabetes: Fasting Specimen (no caloric intake for at least 8 hours): <100 mg/dL Normal 100-125 mg/dL Increased risk for Diabetes >125 mg/dL Diagnostic for Diabetes Random Glucose (any time of day without regard to last meal): > or = 200 mg/dL plus Classic Symptoms of Diabetes Interpretation and review of laboratory results Abnormal [facility] Potassium [Moles/Vol] 4.2 mmol/L 3.3 - 5.1 mmol/L [facility] Protein [Mass/Vol] 6.8 g/dL 5.9 - 8.4 g/dL [facility] Sodium [Moles/Vol] 140 mmol/L 133 - 145 mmol/L [facility] Urea nitrogen [Mass/Vol] 8 mg/dL 4 - 19 mg/dL [facility] Erythrocyte Sedimentation Ra migel 02-26-2023 Erythrocyte Sedimentation Rate Interpretation ----- [facility] Comment on above: [place]: 0-2 mm/hr to puberty: 3-13 mm/hr - Less than 50 years old: Male: <15 mm/hr Female: <20 mm/hr - Greater than 50 years old: Male: <20 mm/hr Female: <30 mm/hr ESR (Bld) [Velocity] 11 mm/h mm/hr [facility] Lipid panelon 02-26-2023 Cholesterol [Mass/Vol] 142 mg/dL 0 - 1 99 mg/dL [facility] Comment on above: Acceptable (mg/dL): <200 Borderline-High (mg/dL): 200-239 High (mg/dL): > or = 240 Recommendations of the NCEP Adult Treatment Panel for the risk cut-off thresholds for the [place]. Cholesterol in HDL [Mass/Vol] 59 mg/dL [facility] Comment on above: Low (mg/dL): <40 Borderline-Low (mg/dL): 40-60 Acceptable (mg/dL): >60 Cholesterol in LDL [Mass/Vol] 66 mg/dL 0 - 129 mg/dL [facility] Non-HDL Cholesterol 83 mg/dL 0 - 129 mg/dL [facility] Triglyceride [Mass/Vol] 88 mg/dL 0 - 149 mg/dL [facility] No Panel Informationon 02-26 [facility] Vitamin D 25 hydroxyon 02-26 25 [place] Vitamin D 61 ng/mL 30 - 100 ng/mL [facility] Comment on above: Reference ranges pro vided by [facility] are based on Endocrine Society Guidelines: Level: Characterization < 21 ng/mL: Vitamin D deficiency 21-29 ng/mL: Suboptimal Vitamin D status 30-100 ng/mL: Optimal Vitamin D status >100 ng/mL: Potentially toxic Vitamin D effects [facility] XR Hip Viewson 02-26-2023 IMPRESSION: Normal x-rays left hip This report has been created using voice recognition software Charanjit Gomez MD - 02/26/2023 PROCEDURE: HIP 2 VIEW > 21YRS LEFT CLINICAL HISTORY: left hip pain COMPARISON: None. FINDINGS: Surgical clips are noted bilaterally in the scrotum or perineum. The left hip joint appears normal with no radiographic changes of arthritis. No fracture or other bony abnormality is identified. IMPRESSION: Normal x-rays left hip This report has been created using voice recognition software [facility] Radiology Study observation (narrative) [facility] XR Hip ViewsOrdered By: Chris Meraz on 02-26-2023 [facility] Work Phone: XR Lumbar spine 2 or 3 Views on 02-26-2023 IMPRESSION: Curvature of the lumbar spine with no other abnormality identified. This report has been created using voice recognition software Charanjit Gomez MD - 02/26/2023 PROCEDURE: LUMBAR SPINE 2-3 VIEWS CLINICAL HISTORY: left hip pain COMPARISON: 12/25/14 FINDINGS: Curvature of the lumbar spine is present convex towards the right. This is been noted on previous x-ray from 12/25/2014. No congenital anomaly of the lumbar vertebrae or sacrum is identified. There is normal alignment with no evidence of fractures. Posterior neural arches appear normal. IMPRESSION: Curvature of the lumbar spine with no other abnormality identified. This report has been created using voice recognition software [facility] Radiology Study observation (narrative) [facility] XR Lumbar spine 2 or 3 Views Ordered By: Charanjit Meraz on 02-26-2023 [facility] Work Phone: COLONOSCOPY SCREENINGon 01-[address] [facility] EGD DIAGNOSTICon 01-21-[address] [facility] SARS CoV-2 RT-PCR 1on 2021 Interpretation and review of laboratory results Abnormal [facility] SARS-CoV-2 (COVID-19) RNA EFE+probe Ql (Unsp spec) Positive Abnormal [facility] Comment on above: POSITIVE: SARS-CoV-2 RNA was detected - Interpretation: A positive result indicates severe acute respiratory syndrome coronavirus 2 (SARS-CoV-2) RNA is present. Clinical correlation with patient history and other diagnostic information is necessary to determine patient infection status. Positive results do not rule out bacterial infection or co-infection with other viruses. - Method: Real-time reverse transcriptase PCR amplification for the qualitative detection of the ORF1 a/b non-structural region that is unique to SARS-CoV-2 and a conserved region in the structural protein envelope E-gene for chacon-Sarbecovirus detection using the Cheli SARS-CoV-2 assay on the A[employer] Cheli [id number] System. - Comment: This test has received FDA Emergency Use Authorization (EUA) and has been verified by [facility]. This test is only authorized for the duration of the public health emergency declaration and the circumstances that exist to justify the authorization of the emergency use of in vitro diagnostic tests for the detection of SARS-CoV-2 virus and/or diagnosis of COVID-19 infection under section 564(b)(1) of the Act, 21 U.S.C. 360bbb-3(b)(1), unless the authorization is terminated or revoked sooner. This test has not been FDA cleared or approved. Results should be used in conjunction with clinical findings, and should not form the sole basis for a diagnosis or treatment decision. - Fact Sheets for this EUA can be found at the following links: For Healthcare Providers: www.fda.gov/media/424834/download For Patients: www.fda.gov/media/595499/download - Reference Value: Negative [facility] Vital Signs Date Time Vital Sign Value Performing Clinician Faci jfy 01-21-2023 12:20-0400 Diastolic blood pressure 73 mm[Hg] Delmy Guevara MD Work Phone: [facility] 01-21-2023 12:20-0400 Heart rate 65 /min Delmy Guevara MD Work Phone: [facility] 01-21-2023 12:20-0400 Respiratory rate 16 /min Delmy Guevara MD Work Phone: [facility] 01-21-2023 12:20-0400 SaO2% (BldA) [Mass fraction] 98 % Delmy Guevara MD Work Phone: [facility] 01-21-2023 12:20-0400 Systolic blood pressure 108 mm[Hg] Delmy Guevara MD Work Phone: [facility] 01-21-2023 10:53-0400 Body height 152.4 cm Delmy Guevara MD Work Phone: [facility] 01-21-2023 10:53-0400 Body temperature 97.9 [degF] Delmy Guevara MD Work Phone: [facility] 01-21-2023 10:53-0400 Body weight 53.98 kg Delmy Guevara MD Work Phone: [facility] 04-08-2022 09:10-0400 Body height 152.4 cm Delmy Guevara MD Work Phone: [facility] 04-08-2022 09:10-0400 Body weight 55.16 kg Delmy Guevara MD Work Phone: [facility] 04-08-2022 09:10-0400 Diastolic blood pressure 79 mm[Hg] Delmy Guevara MD Work Phone: [facility] 04-08-2022 09:10-0400 Heart rate 83 /min Delmy Guevara MD Work Phone: [facility] 04-08-2022 09:10-0400 SaO2% (BldA) [Mass fraction] 99 % Delmy Guevara MD Work Phone: [facility] 04-08-2022 09:10-0400 Systolic blood pressure 130 mm[Hg] Delmy Guevara MD Work Phone: [facility] Encounters Encounter Date Encounter Type Care Provider Facility Start: 05-22-2025 ambulatory BRENNON PETROS Facility:[facility] Start: 04-26-2025 End: 04-[facility]-20[facility] Start: 04-26-2025 Patient encounter procedure BRENNON MORRELL [facility] Start: 04-06-2025 End: 04-06-2025 ambulatory EMANUEL NEUMANN Facility:[facility] Start: 03-01-2025 ambulatory EMANUEL NEUMANN Facility:[facility] Start: 02-27-2025 End: 02-27-2025 Patient encounter procedure Emanuel Neumann MD Work Phone: Otolaryngology Comment on above: 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 (Primary Dx); Bilateral impacted cerumen Start: 02-27-2025 End: 02-27-2025 ambulatory EMANUEL NEUMANN Facility:[facility] Start: 02-15-2025 End: 02-15-2025 Subsequent hospital visit by physician Reinaldo Woodward MD Work Phone: Sports Medicine Comment on above: Arrived Start: 02-15-2025 End: 02-15-2025 ambulatory REINALDO WOODWARD [facility] Start: 12-12-2024 End: 12-12-2024 Patient encounter procedure Emanuel Neumann MD Work Phone: Otolaryngology Comment on above: 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 (Primary Dx) Start: 12-12-2024 End: 12-12-2024 ambulatory EDDINA NEUMANN Facility:[facility] Start: 10-10-2024 End: 10-10-2024 ambulatory WARD NEUMANN Facility:[facility] Start: 10-10-2024 End: 10-10-2024 Patient encounter procedure Emanuel Neumann MD Work Phone: Otolaryngology Comment on above: 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 (Primary Dx) Start: 08-11-2024 End: 08-11-2024 ambulatory EDDINA NEUMANN Facility:[facility] Start: 08-11-2024 End: 08-11-2024 Patient encounter procedure Emanuel Neumann MD Work Phone: Otolaryngology Comment on above: 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 (Primary Dx) Start: 07-21-2024 End: 07-21-2024 ambulatory DINA LINCOLN Facility:[facility] Start: 07-21-2024 End: 07-21-2024 Patient encounter procedure Emanuel Neumann MD Work Phone: Otolaryngology Comment on above: 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 (Primary Dx) Start: 04-21-2024 End: 04-21-2024 Subsequent hospital visit by physician [facility] Comment on above: Chronic mastoiditis, 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] Start: 04-13-2024 End: 04-13-2024 ambulatory NIKKI POTTS [facility] Start: 04-13-2024 End: 04-13-2024 Patient encounter status Nikki Potts MD Work Phone: [facility] Start: 04-13-2024 End: 04-13-2024 Subsequent hospital visit by physician Nikki Potts MD Work Phone: [facility] Comment on above: Routine general medi efren examination at a health care facility (Primary Dx); Calculus of lower urinary tract, unspecified; TORI (juvenile idiopathic arthritis) Start: 03-02-2023 End: 03-02-2023 ambulatory Delmy Guevara MD Work Phone: Gastroenterology Comment on above: Encounter for screen ing for malignant neoplasm of colon (Primary Dx); Esophageal dysphagia Start: 03-02-2023 End: 03-02-2023 Telemedicine consultation with patient Delmy Guevara MD Work Phone: [facility] Start: 02-26-2023 End: 02-26-2023 Subsequent hospital visit by physician Rochelle Almanzar, [facility] Radiology Comment on above: Pain in left hip Arrived Start: 01-21-2023 End: 01-21-2023 Subsequent hospital visit by physician Delmy Guevara MD Work Phone: Gastroenterology Comment on above: Encounter for screen ing for malignant neoplasm of colon [Z12.11] Start: 09-30-2022 ambulatory Delmy Valdez MD Work Phone: [facility] Start: 09-30-2022 Follow-up encounter Delmy Guevara MD Work Phone: Gastroenterology Comment on above: Follow up appointmen t / EGD & colonoscopy Start: 04-13-2022 End: 04-13-2022 Nursing evaluation of patient and report Nurse [facility] Gastroenterology Comment on above: Esophageal dysphagia Start: 04-08-2022 End: 04-08-2022 Patient encounter procedure Delmy Guevara MD Work Phone: Gastroenterology Comment on above: Esophageal dysphagia (Primary Dx) Start: 04-03-2022 Chart abstracting Theresa Amin LPN Gastroenterology Start: 02-04-2022 Telephone encounter Pankaj antoine MD Work Phone: Gastroenterology Comment on above: Consult Start: 11-02-2021 End: 11-02-2021 Subsequent hospital visit by physician Chevy Lorenzo MD Work Phone: [facility] Comment on above: Suspected COVID-19 v irus infection Procedures Date Procedure Procedure Detail Performing Clinician Start: 02-15-2025 Radiologic examination knee 3 views Reinaldo Woodward MD Work Phone: Start: 12-12-2024 Follow-up visit Follow Up EMANUEL NEUMANN Start: 07-21-2024 Cul bact xcpt urine blood/stool aerobic isol Emanuel Neumann MD Work Phone: Start: 07-21-2024 Level iv surg pathology gross&microscopic exam Emanuel Neumann MD Work Phone: Start: 04-13-2024 Comprehensive metabolic panel Nikki vazquez MD Work Phone: Start: 04-13-2024 Lipid panel Nikki Potts MD Work Phone: Start: 04-13-2024 Lipid 1996 panel - Serum or Plasma Ct [facility] Start: 02-26-2023 End: 02-26-2023 Radex spine lumbosacral 2/3 views Heatazra POWERS S, [facility] CS Start: 02-26-2023 COMPLETE BLOOD COUNT WITH DIFFERENTIAL Rochelle POWERS S, [facility] CS Start: 02-26-2023 Comprehensive metabolic panel Rochelle POWERS S, [facility] CS Start: 02-26-2023 Lipid panel Rochelle POWERS S, [facility] CS Start: 01-21-2023 Colonoscopy flx dx w/collj spec when pfrmd Delmy Guevara MD Work Phone: Start: 01-21-2023 Esophagogastroduodenoscopy transoral diagnostic Delmy Guevara MD Work Phone: Start: 01-21-2023 Colonoscopy Delmy Guevara MD Work Phone: Start: 04-13-2022 Esophageal motility study w/interp&rpt Delmy Guevara MD Work Phone: Start: 11-02-2021 SARS COV-2 RT-PCR Chevy Lorenzo MD Work Phone: Plan of Treatment Date Care Activity Detail Author Start: 03-02-2033 Urine microalbumin profile DTaP,Tdap,Td Vaccine (2 - Td or Tdap) [facility] Start: 04-13-2029 Lipid panel Lipid Screening [facility] Start: 04-13-2027 Diabetes Screening Diabetes Screening [facility] Start: 04-26-2025 End: 04-26-2025 Patient encounter procedure 04/26/2025 10:40 AM EDT Office Visit [facility] [address] [place] [address] Brennon Morrell MD [address] [place] [address] est care, wellness [facility] Comment on above: est care, wellness Start: 04-06-2025 End: 04-06-2025 Patient encounter procedure 04/06/2025 4:30 PM EDT Office Visit Otolaryngology [address] [address] Emanuel Neumann MD [address] [place] [address] follow up Otolaryngology Comment on above: follow up Start: 03-05-2025 FLU (#1) FLU (#1) [facility] Start: 03-05-2025 Influenza vaccination Influenza Vaccine (#1) [facility] Start: 02-27-2025 End: 02-27-2025 Patient encounter procedure 02/27/2025 2:00 PM EDT Office Visit Otolaryngology [address] [address] Emanuel Neumann MD [address] [place] [address] 3 Month Follow Up Otolaryngology Comment on above: 3 Month Follow Up Start: 12-12-2024 End: 12-12-2024 Patient encounter procedure 12/12/2024 11:00 AM EDT Office Visit Otolaryngology [address] [address] Emanuel Neumann MD [address] [place] [address] Follow up on Ear Otolaryngology Comment on above: Follow up on Ear Start: 11-28-2024 End: 11-28-2024 Patient encounter procedure 11/28/2024 10:40 AM EDT Office Visit [facility] [address] [place] [address] Brennon Morrell MD [address] [place] [address] est care, wellness [facility] Comment on above: est care, wellness Start: 10-10-2024 End: 10-10-2024 Patient encounter procedure 10/10/2024 11:00 AM EDT Office Visit Otolaryngology [address] [address] Emanuel Neumann MD [address] [place] [address] 2 month follow up Otolaryngology Comment on above: 2 month follow up Start: 08-11-2024 End: 08-11-2024 Patient encounter procedure 08/11/2024 2:00 PM EST Office Visit Otolaryngology [address] [address] Emanuel Neumann MD [address] [place] [address] follow up. Aug [address] Neumann Otolaryngology Comment on above: follow up. Aug [address] Neumann Start: 05-06-2024 Screening for malignant neoplasm of colon [facility] Start: 03-05-2024 COVID-19 ( season) COVID-19 () [facility] Start: 03-05-2024 COVID-19 () COVID-19 () [facility] Start: 03-05-2024 Covid-19 Vaccine () Covid-19 Vaccine ( season) [facility] Start: 03-05-2024 FLU (#1) FLU (#1) [facility] Start: 03-05-2024 Influenza vaccination Influenza Vaccine (#1) [facility] Start: 01-22-2024 Colonoscopy COLONOSCOPY [facility] Start: 01-22-2024 COLORECTAL CANCER SCREENING COLORECTAL CANCER SCREENING [facility] Start: 01-22-2024 Screening for malignant neoplasm of colon Colonoscopy [facility] Start: 12-28-2023 Pneumococcal Vaccine: 50+ (1 of 1 - PCV) Pneumococcal Vaccine: 50+ (1 of 1 - PCV) [facility] Start: 12-28-2023 Shingrix Vaccine (1 of 2) Shingrix Vaccine (1 of 2) [facility] Start: 03-30-2023 Tetanus Diphtheria and Pertussis Vaccines (2 - Td or Tdap) Tetanus Diphtheria and Pertussis Vaccines (2 - Td or Tdap) [facility] Start: 03-05-2023 FLU (#1) FLU (#1) [facility] Start: 03-05-2023 Influenza vaccination INFLUENZA (#1) [facility] Start: 07-05-2022 DEPRESSION ASSESSMENT DEPRESSION ASSESSMENT [facility] Start: 04-08-2022 End: 06-08-2022 CREATININE BLD CREATININE BLD Lab Routine Esophageal dysphagia Expected: 04/08/2022, Expires: 06/08/2022 [facility] Work Phone: Comment on above: Expected: 04/08/2022, Expires: 2 Start: 04-08-2022 End: 06-08-2022 Magnesium [Mass/volume] in Serum or Plasma MAGNESIUM BLD Lab Routine Esophageal dysphagia Expected: 04/08/2022, Expires: 06/08/2022 [facility] Work Phone: Comment on above: Expected: 04/08/2022, Expires: 2 Start: 03-05-2022 Influenza vaccination INFLUENZA (#1) [facility] Start: 07-05-2021 DEPRESSION ASSESSMENT DEPRESSION ASSESSMENT [facility] Start: 06-23-2021 COVID-19 (4 - Booster for Moderna series) COVID-19 (4 - Booster for Moderna series) [facility] Start: 2018 COLOGUARD (FIT-DNA) COLOGUARD (FIT-DNA) [facility] Start: 2018 Colonoscopy COLONOSCOPY [facility] Start: 2018 COLORECTAL CANCER SCREENING COLORECTAL CANCER SCREENING [facility] Start: [address] COLONOGRAPHY [facility] Start: 2018 DIABETES SCREEN DIABETES SCREEN [facility] Start: 2018 FECAL OCCULT BLOOD FECAL OCCULT BLOOD [facility] Start: 2018 Screening for malignant neoplasm of colon [facility] Start: 2018 SIGMOIDOSCOPY SIGMOIDOSCOPY [facility] Start: 2008 LIPID SCREEN LIPID SCREEN [facility] Start: 1992 Hepatitis A (1 of 2 - Risk 2-dose series) Hepatitis A (1 of 2 - Risk 2-dose series) [facility] Start: 1992 Hepatitis B (1 of 3 - 19+ 3-dose series) Hepatitis B (1 of 3 - 19+ 3-dose series) [facility] Start: 1992 Hepatitis B Vaccine (1 of 3 - 19+ 3-dose series) Hepatitis B Vaccine (1 of 3 - 19+ 3-dose series) [facility] Start: 1992 Urine microalbumin profile DTAP,TDAP,TD (1 - Tdap) [facility] Start: 12-28-1991 Anxiety Screening Anxiety Screening [facility] Start: 12-28-1991 Depression Screening Depression Screening [facility] Start: 12-28-1991 HEPATITIS C SCREENING HEPATITIS C SCREENING [facility] Start: 12-28-1991 Hepatitis C screening Hepatitis C Screening [facility] Start: 12-28-1991 HIV SCREENING HIV SCREENING [facility] Start: 12-28-1991 HIV screening HIV Screening [facility] Start: 1989 MenB (1 of 2 - MenB 2-Dose Series Bexsero) MenB (1 of 2 - MenB 2-Dose Series Bexsero) [facility] Start: 1989 MenB (1 of 2 - MenB 2-Dose Series) MenB (1 of 2 - MenB 2-Dose Series) [facility] Start: 1986 Varicella (1 of 2 - 13+ 2-dose series) Varicella (1 of 2 - 13+ 2-dose series) [facility] Start: 1980 Tetanus Diphtheria and Pertussis Vaccines (1 - Tdap) Tetanus Diphtheria and Pertussis Vaccines (1 - Tdap) [facility] Start: 1974 MMR (1 of 1 - Standard series) MMR (1 of 1 - Standard series) [facility] Start: 1974 Varicella (1 of 2 - 2-dose childhood series) Varicella (1 of 2 - 2-dose childhood series) [facility] Start: 06-28-1974 COVID-19 VACCINE (#1) COVID-19 VACCINE (#1) [facility] Start: 1973 HEPATITIS B (1 of 3 - 3-dose series) HEPATITIS B (1 of 3 - 3-dose series) [facility] End: 02-26-2023 C Peptide C Peptide Lab Routine For lab collect this frequency defaults to the next routine lab draw time. Routine times: 0600; 1100; 1400; 1900; 2200 for 1 Occurrences starting 02/26/2023 until 02/26/2023 [facility] Comment on above: For lab collect this frequency defaults to the next routine lab draw time. Routine times: 0600; 1100; 1400; 1900; 2200 for 1 Occurrences starting 02/26/2023 until 02/26/2023 C Peptide C Peptide Lab Ro utine 02/26/2023 8:30 AM EDT [facility] End: 10-03-2023 EGD DIAGNOSTIC EGD DIAGNOSTIC Endoscopy Routine Esophageal dysphagia 1 Occurrences starting 10/02/2022 until 10/03/2023 [facility] Work Phone: Comment on above: 1 Occurrences starting 10/02/2022 until 10/03/2023 End: 04-08-2023 Esophageal motility study w/interp&rpt MANOMETRY ESOPHAGEAL Endoscopy Routine Esophageal dysphagia 1 Occurrences starting 04/08/2022 until 04/08/2023 [facility] Work Phone: Comment on above: 1 Occurrences starting 04/08/2022 until 04/08/2023 Esophageal motility study w/interp&rpt MANOMETRY ESOPHAGEAL Endoscopy Routine Esophageal dysphagia 04/13/2022 [facility] Work Phone: End: 04-13-2024 Prostate specific antigen [facility] Work Phone: Comment on above: For lab collect this frequency defaults to the next routine lab draw time. Routine times: 0600; 1100; 1400; 1900; 2200 for 1 Occurrences starting 04/13/2024 until 04/13/2024 Reconstruction exter nal auditory canal spx MEATOPLASTY OF EXTERNAL AUDITORY CANAL Cholesteatoma of right external auditory canal Impacted cerumen of left ear [facility] End: 02-26-2023 Rheumatoid factor Rheumatoid factor Lab Routine For lab collect this frequency defaults to the next routine lab draw time. Routine times: 0600; 1100; 1400; 1900; 2200 for 1 Occurrences starting 02/26/2023 until 02/26/2023 [facility] Comment on above: For lab collect this frequency defaults to the next routine lab draw time. Routine times: 0600; 1100; 1400; 1900; 2200 for 1 Occurrences starting 02/26/2023 until 02/26/2023 Rheumatoid factor Rheumatoid fac tor Lab Routine 02/26/2023 8:30 AM EDT [facility] End: 10-03-2023 Screening colonoscopy COLONOSCOPY SCREENING Endoscopy Routine Encounter for screening for malignant neoplasm of colon 1 Occurrences starting 10/02/2022 until 10/03/2023 [facility] Work Phone: Comment on above: 1 Occurrences starting 10/02/2022 until 10/03/2023 SURGICAL PATHOLOGY [facility] Work Phone: Comment on above: Release Upon Ordering for 1 Occurrences starting 01/21/2023, 1 completed [facility] Immunizations Immunization Date Immunization Notes Care Provider Fa cility 04-24-2024 influenza virus vacc ine, unspecified formulation Emanuel Neumann MD Work Phone: [facility] 04-16-2023 influenza virus vacc ine, unspecified formulation [facility] Payers Date Payer Category Payer Private Health Insurance [employer] PPO [id number] 2021 Unknown [id number] 2014 Unknown [id number] 1973 Unknown [id number] 1973 Unknown [id number] 1973 Unknown [id number] Social History Date Type Detail Facility Start: 06-08-2019 End: 04-08-2022 Tobacco smoking status [facility] Never smoked tobacco [facility] Start: 06-08-2019 End: 04-08-2022 Tobacco use and exposure Smokeless tobacco non-user [facility] Start: 1975 Sex Assigned At Not on file A [facility] Tobacco smoking status MSIS Tobacco smoking consumption unknown [facility] Start: 02-21-2022 End: 04-08-2022 Exposure to SARS-CoV-2 (event) Not sure [facility] Start: 04-08-2022 End: 12-12-2024 Alcohol intake Lifetime non-drinker (finding) [facility] Start: 01-21-2023 End: 03-02-2023 History of Social function [facility] Start: 01-21-2023 End: 03-02-2023 Tobacco use panel [facility] Start: 01-27-2022 National Score (1-100), lower number is lower risk [address] [facility] Start: 10-23-2014 Sex Male (finding) [facility] Clinical Notes 11-03-2021 to 05-06-2025 Patient InstructionsEmanuel Neumann MD - 02/27/2025 2:38 PM Leni Orellana RN - 02/27/2025 1:58 PM Emanuel Emerson MD - 12/13/2024 12:44 PM Diana Martin MA - 12/12/2024 11:08 AM EDT Note Date & Type Note Facility 05-06-2025 Note HNO ID: [id number] Author: EMANUEL NEUMANN MD Service: ? Author Type: Physician Type: Progress Notes Filed: 05/06/2025 14:39 Note Text: Neurotology Clinic - Return Visit Flakito Amaya He notes occasional discharge of wax or exudate during washing, but denies any changes in hearing since the last visit, stating it has improved on the right side. The patient has a complex otologic history, including multiple tympanostomy tube placements (approximately [age]) and a previous tympanic membrane perforation last year secondary to a sinus infection, which was treated with antibiotics, resulting in resolution of purulent otorrhea. His last audiogram was in 2020. Objective: AANDO Ears: Right ear - EAC clear, Exposed bone remains present on anterior and inferior aspect of ear canal. Neuro - Cranial Nerves: Right CN 7 - HB 1 Left CN 7 - HB 1 Unlabored respirations, no audible respiratory sounds/stridor Skin well perfused PROCEDURE NOTE: Otomicroscopy A microscope was used to evaluate the ears. Micro-instruments (curettes and/or suction) were used to clean the ear canal and obtain a clear view of the tympanic membranes. All relevant findings are detailed in the Physical Exam findings as listed above. The patient tolerated the procedure well and there were no complications. 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 - Scheduled right-sided canaloplasty and split-thickness skin graft on June 05 at [place]. - Discussed procedure details, including smoothing of bone, possible small incision, and skin graft placement; explained that the procedure is expected to take less than 90 minutes. - Reviewed risks, including low risk to facial nerve, and use of facial nerve monitoring during surgery; patient expressed understanding and agreement with the plan. - Advised to keep ear dry postoperatively until follow-up; discussed expected recovery timeline and minimal expected drainage. - Follow-up appointment scheduled for a couple of weeks after surgery. # Conductive hearing loss of right ear with restricted hearing of left ear (H90.A11) No changes in hearing since last visit; improvement noted on the right side since starting treatment. CT scan of right ear shows a linear band of scar tissue from the incus past the IS joint, possibly contributing to conductive hearing loss. - Ordered audiogram prior to surgery; requisition provided. - Discussed possibility of middle ear exploration and tympanoplasty, but agreed to avoid additional procedures unless necessary. Emanuel Neumann III, MD Recording using [employer] software for draft documentation of the visit was discussed with the patient/authorized passenger service representative; all questions welcomed and answered. Patient/authorized passenger service representative agreed to proceed [facility] 04-30-2025 Note HNO ID: [id number] Author: BRENNON MORRELL MD Service: ? 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 Flakito Amaya is a 49-year-old male with a history of cholesteatoma, EoE, and cleidocranial dysplasia, presenting for an initial visit to [facility]. Cholesteatoma: - Diagnosed with cholesteatoma in the right ear canal, managed by Dr. Neumann, ENT, for about a year. - Undergoing debridement; condition has improved but still has a small patch of exposed bone. - Scheduled for OR on June 05 for bone removal and skin graft. - History of multiple ear surgeries, including 8 sets of tubes. Eosinophilic Esophagitis: - Previously diagnosed with EoE, managed by Dr. Foote, GI. - Released from follow-up by Dr. Foote. - Following a gluten-free and egg-free diet, reports feeling well on this diet. - Taking Pepcid. 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 - History of multiple extra teeth, including an impacted wisdom tooth causing periodic infections. - Underwent a procedure to clean out the area around the impacted tooth 3-4 years ago, with no issues since. - Concerned about osteonecrosis of the jaw due to bisphosphonate use. 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 - No current issues related to JRA. Lichen Planus: - Diagnosed with lichen planus, causing hair loss but no significant problems. Scoliosis: - Suspected scoliosis related to cleidocranial dysplasia, but no significant issues reported. - Son has severe scoliosis and underwent spinal fusion. Lifestyle: - Engages in trail running with his son, running 4-5 miles a couple of times a week. - Follows a diet primarily consisting of vegetables, fruits, and rice, avoiding animal products and gluten. - Drinks 6-8 glasses of water daily, with additional intake before running. - Takes vitamin D and calcium supplements, with a current vitamin D level of 70. Family: - with an 18-year-old daughter and a 16-year-old son. - Brother is a physician. COVID-19: - Received initial two-dose series of Moderna vaccine and one booster. - Contracted COVID-19 twice, most recently about a year ago. Review of Systems Skin: (+) alopecia PAST MEDICAL HISTORY Diagnosis Date Cleidocranial dysostosis AKA Cleidocranial dysplasia. 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 SOCIAL HISTORY[1] multivit,thx,calcium,iron,mins (MULTIVITAMIN AND MINERAL ORAL) Take 1 tablet by mouth once daily. 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 loratadine 10 mg cap as needed. calcium carbonate (TUMS 500 ORAL) Take by mouth as needed. famotidine (PEPCID) 20 mg tablet Take 20 mg by mouth two times a day. ascorbic acid, vitamin C, 125 mg chew calcium citrate/vitamin D3 (CALCIUM CITRATE + D ORAL) ofloxacin (FLOXIN) 0.3 % otic solution Use 5 drops in both ears every other day. (Patient taking differently: Use 5 drops in both ears every other day. As needed. Alternates with vinegar ear washes) Objective BP 138/78 (BP Site: Right Arm, BP Position: Sitting, BP Cuff Size: Regular Adult) Pulse 72 Temp 36.6 ?C (97.9 ?F) (Temporal) Ht 5' 2 (1.575 m) Wt 122 lb 6.4 oz (55.5 kg) SpO2 100% BMI 22.39 kg/m? Physical Exam GENERAL: NAD, alert and oriented. SKIN: Unremarkable, no rash or skin lesions. HEAD: Normocephalic. EYES: PERRLA, EOMI, conjunctiva clear. EARS: External ears normal. Left TM retracted, right ear with cholesteatoma noted in the external auditory canal. NOSE/SINUSES: Nares normal. Septum midline. No sinus tenderness. OROPHARYNX: Lips, mucosa, and tongue normal, good dentition. No oral lesions noted. Slight rightward deviation of the uvula. NECK: Supple, no lymphadenopathy, normal thyroid, no carotid bruits. LUNGS: Clear to auscultation bilaterally, no wheezes/rhonchi/rales. HEART: Regular rate and rhythm, grade 3/6 systolic murmur heard over the left upper sternal border. No gallops noted. ABDOMEN: Soft, non-tender, non-distended. EXTREMITIES: Normal, no deformities, no skin di (more content not included)... [facility] 02-27-2025 Instructions Amanda Ivy MD - 02/27/2025 2:49 PM EDT Perform twice daily douches for the first week. Then perform once daily douches for the second week. Then perform a douche every other day for the third and fourth weeks. You have been asked to irrigate your ear. The irrigation cleans out debris and coats your ear with a mild acidic solution that is similar to your body's natural ear wax, which acts as a natural cleansing solution that will help your ear to heal and keep clean. Steps for irrigation: 1. Mix ordinary white distilled vinegar with an equal amount of warm tap water to give a 50:50 mixture. The temperature should be body temperature and feel warm to the skin, such as with a baby bottle (98.6 degrees F or 37 degrees C). If the temperature is not at body temperature the irrigation may make you dizzy. This is not dangerous and will pass quickly but may make you uncomfortable in the meantime. 2. Place the mixture into a rubber bulb syringe, such as the type used for cleaning infants' noses and mouths (this can easily be obtained at any pharmacy). Most syringes will hold 1 or [address] the nozzle of the syringe at the opening of your ear without inserting it deeply into the ear canal. A firm irrigation is appropriate without trying to be excessively forceful. Hold the ear to be rinsed DOWNWARD (unlike placing drops, in which case the ear is held upward), so that as you rinse your ear, the water and any debris will fall out of your ear. Use the entire contents of the bulb syringe, and then allow the ear to drip dry for a few seconds. 4. If you have also been prescribed ear drops, this is an excellent time to place them, since the ear has been cleaned. The ear can now be turned upwards and the ear drops placed. documented in this encounter [facility] 02-27-2025 Note HNO ID: [id number] Author: EMANUEL NEUMANN MD Service: ? 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 I have been treating him since July of 2024. Denies drainage, pain, changes in hearing. Has returned to swimming, has been using drops once daily. Objective: AANDO Ears: Area of exposed bone in right ear canal has decreased in size, about 4x 4 mm in size measured with curette. Area of crusted cerumen over bone removed, some purulence seen. Debrided over bone with curette. No evidence of canal cholesteatoma. Some evidence of bone cortex erosion worsening. Tm membrane intact. Ciprodex drops instilled. Left ear examined. Minimal cerumen removed. TM normal. Neuro - Cranial Nerves: Right CN 7 - HB 1 Left CN 7 - HB 1 Unlabored respirations, no audible respiratory sounds/stridor Skin well perfused PROCEDURE NOTE: Cerumen Debridement A microscope was used to evaluate the ears. The right ear was found to be impacted with CERUMEN. Micro-instruments (curettes and/or suction) were used to clean the ear canal and obtain a clear view of the tympanic membranes. All relevant findings are detailed in the Physical Exam findings as listed above. The patient tolerated the procedure well and there were no complications. 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 Bilateral cerumen impaction present. Stop daily drops Recommend 50/50 vinegar and water to wash out right ear, if painful dilute more. Follow up in 4-6 weeks, if evidence of continuing bony cortex erosion or no improvement, discussed would recommend going to OR to freshen bony edges and place skin graft (post auricular). We will put in case request now to hold slot for . MD Amanda Cordero III, MD for the service of Emanuel Neumann MD I performed a history, reviewed bergman exam findings and diagnostic studies, and discussed management plan with the resident. I reviewed the resident's note and agree with the documented findings and plan of care. 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 I have been treating him since July of 2024. Denies drainage, pain, changes in hearing. Has returned to swimming, has been using drops once daily. Objective: A&O Ears: Area of exposed bone in right ear canal has decreased in size, about 4x 4 mm in size measured with curette. Area of crusted cerumen over bone removed, some purulence seen. Debrided over bone with curette. No evidence of canal cholesteatoma. Some evidence of bone cortex erosion worsening. Tm membrane intact. Ciprodex drops instilled. Left ear examined. Minimal cerumen removed. TM normal. Neuro - Cranial Nerves: Right CN 7 - HB 1 Left CN 7 - HB 1 Unlabored respirations, no audible respiratory sounds/stridor Skin well perfused PROCEDURE NOTE: Cerumen Debridement A microscope was used to evaluate the ears. The right ear was found to be impacted with CERUMEN. Micro-instruments (curettes and/or suction) were used to clean the ear canal and obtain a clear view of the tympanic membranes. All relevant findings are detailed in the Physical Exam findings as listed above. The patient tolerated the procedure well and there were no complications. 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 Bilateral cerumen impaction present. Stop daily drops Recommend 50/50 vinegar and water to wash out right ear, if painful dilute more. Follow up in 4-6 weeks, if evidence of continuing bony cortex erosion or no improvement, discussed would recommend going to OR to freshen bony edges and place skin graft (post auricular). We will put in case request now to hold slot for . MD Amanda Cordero III, MD for the service of Emanuel Neumann MD I performed a history, reviewed bergman exam findings and diagnostic studies, and discussed management plan with the resident. I reviewed the resident's note and agree with the documented findings and plan of care. 4:05 AM 03/01/2025 Emanuel Neumann MD Tobacco Use: Never Was smoking cessation packet given? N/A - Patient is a non-smoker or quit >1 year ago. Was a referral initiated?N/A Patient is a non-smoker documented in this encounter [facility] 02-27-2025 Note HNO ID: [id number] Author: LENI NICHOLSON RN Service: ? Author Type: Registered Nurse Type: Progress Notes Filed: 03/01/2025 04:07 Note Text: Tobacco Use: Never Was smoking cessation packet given? N/A - Patient is a non-smoker or quit >1 year ago. Was a referral initiated?N/A Patient is a non-smoker [facility] 02-15-2025 Note PROCEDURE: KNEE 3 EWS RIGHT CLINICAL HISTORY: knee pain COMPARISON: None. FINDINGS: There is no visible fracture. Mild osteophytosis in the patellofemoral compartment. Mild medial compartment joint space narrowing. Alignment is normal. There is no visible joint effusion. The soft tissues are radiographically normal. [facility] 02-15-2025 Note PROCEDURE: KNEE 3 EWS RIGHT CLINICAL HISTORY: knee pain COMPARISON: None. FINDINGS: There is no visible fracture. Mild osteophytosis in the patellofemoral compartment. Mild medial compartment joint space narrowing. Alignment is normal. There is no visible joint effusion. The soft tissues are radiographically katie. IMPRESSION: No acute fracture identified. Mild degenerative changes in the medial and patellofemoral compartments. This report has been created using voice recognition software Signed by: Dr. Ronn Tee at 02/15/2025 17:15 [facility] 12-13-2024 Note HNO ID: [id number] Author: EMANUEL NEUMANN MD Service: ? Author Type: Physician Type: Progress Notes Filed: 12/13/2024 12:46 Note Text: PROCEDURE NOTE: Otomicroscopy A microscope was used to evaluate the right ear. Micro-instruments (curettes and/or suction) were used to clean the ear canal and obtain a clear view of the tympanic membrane. Area of exposed bone in right ear canal has decreased in size. No evidence of worsening erosion or canal cholesteatoma. The patient tolerated the procedure well and there were no complications. Continue use of once daily ofloxacin to maintain a clean and moist environment. May return to swimming. Follow up in 3 months. [facility] 12-13-2024 History of Presen t illness Narrative PROCEDURE NOTE: Otomicroscopy A microscope was used to evaluate the right ear. Micro-instruments (curettes and/or suction) were used to clean the ear canal and obtain a clear view of the tympanic membrane. Area of exposed bone in right ear canal has decreased in size. No evidence of worsening erosion or canal cholesteatoma. The patient tolerated the procedure well and there were no complications. Continue use of once daily ofloxacin to maintain a clean and moist environment. May return to swimming. Follow up in 3 months. Tobacco Use: Never Was smoking cessation packet given? N/A - Patient is a non-smoker or quit >1 year ago. Was a referral initiated?N/A Patient is a non-smoker documented in this encounter [facility] 12-12-2024 Note HNO ID: [id number] Author: DIANA PULIDO MA Service: ? Author Type: [employer] Type: Progress Notes Filed: 12/13/2024 12:46 Note Text: Tobacco Use: Never Was smoking cessation packet given? N/A - Patient is a non-smoker or quit >1 year ago. Was a referral initiated?N/A Patient is a non-smoker [facility] 10-10-2024 Note HNO ID: [id number] Author: EMANUEL NEUMANN MD Service: ? Author Type: Physician Type: Progress Notes Filed: 10/11/2024 10:11 Note Text: Neurotology Clinic - Return Visit Flakito Amaya is a 48 year old male: Right sided canal cholesteatoma. Subjective: The right ear has felt better than it has in a long time. Objective: AANDO Ears: Right ear - EAC with interval epithelialization overlying areas of exposed bone. Surface area of exposed bone has decreased. No new bone destruction. TM intact no effusion or retraction. Neuro - Cranial Nerves: Right CN 7 - HB 1 Left CN 7 - HB 1 Unlabored respirations, no audible respiratory sounds/stridor Skin well perfused Procedure note - Otomicroscopy: A microscope was used to evaluate the ears. Micro-instruments - curettes and/or suction - were used to clean the ear canal and obtain a clear view of the tympanic membranes. All relevant findings are detailed in the physical exam findings as listed above. The patient tolerated the procedure well with no complications. I scraped exposed desiccated portions of exposed bone. Mupirocin applied to edge of exposed bone. Assessment: Right external auditory canal cholesteatoma. Improving. Plan: Continue application of ofloxacin drops every other day in 1 week. Begin daily applications of drops in one month. Return to see me in 2 months. Emanuel Neumann III, MD [facility] 10-10-2024 History of Presen t illness Narrative Neurotology Clinic - Return Visit Flakito Amaya is a 48 year old male: Right sided canal cholesteatoma. Subjective: The right ear has felt better than it has in a long time. Objective: A&O Ears: Right ear - EAC with interval epithelialization overlying areas of exposed bone. Surface area of exposed bone has decreased. No new bone destruction. TM intact no effusion or retraction. Neuro - Cranial Nerves: Right CN 7 - HB 1 Left CN 7 - HB 1 Unlabored respirations, no audible respiratory sounds/stridor Skin well perfused Procedure note - Otomicroscopy: A microscope was used to evaluate the ears. Micro-instruments - curettes and/or suction - were used to clean the ear canal and obtain a clear view of the tympanic membranes. All relevant findings are detailed in the physical exam findings as listed above. The patient tolerated the procedure well with no complications. I scraped exposed desiccated portions of exposed bone. Mupirocin applied to edge of exposed bone. Assessment: Right external auditory canal cholesteatoma. Improving. Plan: Continue application of ofloxacin drops every other day in 1 week. Begin daily applications of drops in one month. Return to see me in 2 months. Emanuel Neumann III, MD Tobacco Use: Never Was smoking cessation packet given? N/A - Patient is a non-smoker or quit >1 year ago. Was a referral initiated?N/A Patient is a non-smoker documented in this encounter [facility] 10-10-2024 Note HNO ID: [id number] Author: LENI NICHOLSON RN Service: ? Author Type: Registered Nurse Type: Progress Notes Filed: 10/11/2024 10:11 Note Text: Tobacco Use: Never Was smoking cessation packet given? N/A - Patient is a non-smoker or quit >1 year ago. Was a referral initiated?N/A Patient is a non-smoker [facility] 08-16-2024 Note HNO ID: [id number] Author: EMANUEL NEUMANN MD Service: ? Author Type: Physician Type: Progress Notes Filed: 08/16/2024 15:33 Note Text: Neurotology Clinic - Return Visit Flakito Amaya is a 48 year old male: Subjective: Hearing remains improved. Denies drainage or pain. Objective: AANDO Ears: Right ear - EAC with interval development of skin bridges overlying previously exposed bone. Bone of inferior canal remains exposed, but exposed area is smaller, TM intact no effusion or retraction Left ear - EAC clear, TM intact no effusion or retraction. Neuro - Cranial Nerves: Right CN 7 - HB 1 Left CN 7 - HB 1 Unlabored respirations, no audible respiratory sounds/stridor Skin well perfused Procedure note - Otomicroscopy: A microscope was used to evaluate the ears. Micro-instruments - curettes and/or suction - were used to clean the ear canal and obtain a clear view of the tympanic membranes. All relevant findings are detailed in the physical exam findings as listed above. The patient tolerated the procedure well with no complications. Assessment: Right sided canal cholesteatoma. No cholesteatoma identified. Skin appears to be healing over the areas of exposed bone. Plan: Return to clinic in 2 months for additional debridement. Keep ears dry. Emanuel Neumann III, MD [facility] 08-16-2024 History of Presen t illness Narrative Neurotology Clinic - Return Visit Flakito Amaya is a 48 year old male: Subjective: Hearing remains improved. Denies drainage or pain. Objective: A&O Ears: Right ear - EAC with interval development of skin bridges overlying previously exposed bone. Bone of inferior canal remains exposed, but exposed area is smaller, TM intact no effusion or retraction Left ear - EAC clear, TM intact no effusion or retraction. Neuro - Cranial Nerves: Right CN 7 - HB 1 Left CN 7 - HB 1 Unlabored respirations, no audible respiratory sounds/stridor Skin well perfused Procedure note - Otomicroscopy: A microscope was used to evaluate the ears. Micro-instruments - curettes and/or suction - were used to clean the ear canal and obtain a clear view of the tympanic membranes. All relevant findings are detailed in the physical exam findings as listed above. The patient tolerated the procedure well with no complications. Assessment: Right sided canal cholesteatoma. No cholesteatoma identified. Skin appears to be healing over the areas of exposed bone. Plan: Return to clinic in 2 months for additional debridement. Keep ears dry. Emanuel Neumann III, MD Tobacco Use: Never Was smoking cessation packet given? N/A - Patient is a non-smoker or quit >1 year ago. Was a referral initiated?N/A Patient is a non-smoker documented in this encounter [facility] 08-11-2024 Note HNO ID: [id number] Author: JASMYNE PÉREZ OCCA Service: ? Author Type: [employer] Type: Progress Notes Filed: 08/16/2024 15:33 Note Text: Tobacco Use: Never Was smoking cessation packet given? N/A - Patient is a non-smoker or quit >1 year ago. Was a referral initiated?N/A Patient is a non-smoker [facility] 07-26-2024 Note Intradepartmental co nsultation obtained with Dr. Chung Coronado, with agreement. [facility] Work Phone: 07-21-2024 Note Intradepartmental co nsultation obtained with Dr. Chung Coronado, with agreement. [facility] Comment on above: Order Comment: Speci men Type: TISSUE SPECIMENOrdering Facility: [facility] Address: [address] [place] [address] Performed By: #### S ####[facility] LABCLIA [id number] [facility] [id number] [id number] [place] 07-21-2024 Note HNO ID: [id number] Author: EMANUEL NEUMANN MD Service: ? Author Type: Physician Type: Progress Notes Filed: 07/30/2024 18:07 Note Text: SECTION OF OTOLOGY, NEUROTOLOGY AND LATERAL SKULL BASE SURGERY Head and Neck [place] Chief Complaint: Right ear discharge. 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 Cholesteatoma s/p few surgeries. Bone identified in right ear at time of last cleaning. CT temporal bone ordered. Past Medical History: He has a past medical history of Cleidocranial dysostosis, Eosinophilic esophagitis, Juvenile rheumatoid arthritis (HCC), and Lichen planus. Past Surgical History: He has a past surgical history that includes tympanoplasty and tonsillectomy hx. Social History: He reports that he has never smoked. He has never used smokeless tobacco. He reports that he does not drink alcohol and does not use drugs. Physical Exam: A comprehensive ear, nose, throat/head and neck exam was performed. Pertinent findings include: See nurse intake for vitals Ears: Right ear - Pinna normal EAC with a well epithelialized tunnel of the posterior cartilaginous canal. There is dried cerumen mixed with dried bone of the anterior canal TM intact no effusion or retraction. Left ear - Pinna normal EAC clear, TM intact no effusion or retraction. Neuro - Cranial Nerves: CN V - intact Right CN 7 - HB 1 Left CN 7 - HB 1 No dysphonia or dysarthria Shoulder and/or SCM strength normal Constitutional: Well appearing, typically developed, no acute distress Eyes: extra-ocular muscles intact, sclera white, pupils grossly symmetric Lymphatic: no visible cervical lymphadenopathy Respiratory: unlabored breathing with no grossly audible stridor or wheezing Skin: no obvious skin lesions of visible skin of face, neck PROCEDURE NOTE: Cerumen Debridement A microscope was used to evaluate the ears. The RIGHT ear was found to be impacted with CERUMEN. Micro-instruments (curettes and/or suction) were used to clean the ear canal and obtain a clear view of the tympanic membranes. All relevant findings are detailed in the Physical Exam findings as listed above. The patient tolerated the procedure well and there were no complications. Audiogram (personally reviewed and interpreted): No audiogram to review. Imaging (personally reviewed and interpreted): CT Temp Bones: Interpretation: Sclerotic mastoid. Erosion of the ear canal. Devitalized bone of the anterior inferior canal wall. Assessment: Right sided external auditory canal cholesteatoma. Plan: Cholesteatoma was extensively debrided in the office today. Ofloxacin drops: 5 drops to right ear every 12 hours for 28 days. Surgical pathology, gram stain and culture on removed bone. Return to clinic in 3-4 weeks for repeat debridement. Emanuel Neumann III, MD Medical Decision Making: Problems: Low: Stable chronic illness Data: Unique test result(s) reviewed: 1 Unique test(s) ordered: 2 Independent interpretation of test from other physician/HCP Risk: Moderate: Drug management Medical Decision Making Level: 4 - Moderate [facility] 07-21-2024 History of Presen t illness Narrative Images from the original note were not included. SECTION OF OTOLOGY, NEUROTOLOGY AND LATERAL SKULL BASE SURGERY Head and Neck [place] Chief Complaint: Right ear discharge. 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 Cholesteatoma s/p few surgeries. Bone identified in right ear at time of last cleaning. CT temporal bone ordered. Past Medical History: He has a past medical history of Cleidocranial dysostosis, Eosinophilic esophagitis, Juvenile rheumatoid arthritis (HCC), and Lichen planus. Past Surgical History: He has a past surgical history that includes tympanoplasty and tonsillectomy hx. Social History: He reports that he has never smoked. He has never used smokeless tobacco. He reports that he does not drink alcohol and does not use drugs. Physical Exam: A comprehensive ear, nose, throat/head and neck exam was performed. Pertinent findings include: See nurse intake for vitals Ears: Right ear - Pinna normal EAC with a well epithelialized tunnel of the posterior cartilaginous canal. There is dried cerumen mixed with dried bone of the anterior canal TM intact no effusion or retraction. Left ear - Pinna normal EAC clear, TM intact no effusion or retraction. Neuro - Cranial Nerves: CN V - intact Right CN 7 - HB 1 Left CN 7 - HB 1 No dysphonia or dysarthria Shoulder and/or SCM strength normal Constitutional: Well appearing, typically developed, no acute distress Eyes: extra-ocular muscles intact, sclera white, pupils grossly symmetric Lymphatic: no visible cervical lymphadenopathy Respiratory: unlabored breathing with no grossly audible stridor or wheezing Skin: no obvious skin lesions of visible skin of face, neck PROCEDURE NOTE: Cerumen Debridement A microscope was used to evaluate the ears. The RIGHT ear was found to be impacted with CERUMEN. Micro-instruments (curettes and/or suction) were used to clean the ear canal and obtain a clear view of the tympanic membranes. All relevant findings are detailed in the Physical Exam findings as listed above. The patient tolerated the procedure well and there were no complications. Audiogram (personally reviewed and interpreted): No audiogram to review. Imaging (personally reviewed and interpreted): CT Temp Bones: Interpretation: Sclerotic mastoid. Erosion of the ear canal. Devitalized bone of the anterior inferior canal wall. Assessment: Right sided external auditory canal cholesteatoma. Plan: Cholesteatoma was extensively debrided in the office today. Ofloxacin drops: 5 drops to right ear every 12 hours for 28 days. Surgical pathology, gram stain and culture on removed bone. Return to clinic in 3-4 weeks for repeat debridement. Emanuel Neumann III, MD Medical Decision Making: Problems: Low: Stable chronic illness Data: Unique test result(s) reviewed: 1 Unique test(s) ordered: 2 Independent interpretation of test from other physician/QHCP Risk: Moderate: Drug management Medical Decision Making Level: 4 - Moderate Tobacco Use: Never Was smoking cessation packet given? N/A - Patient is a non-smoker or quit >1 year ago. Was a referral initiated?N/A Patient is a non-smoker documented in this encounter [facility] 07-21-2024 Note HNO ID: [id number] Author: LENI NICHOLSON RN Service: ? Author Type: Registered Nurse Type: Progress Notes Filed: 07/30/2024 18:07 Note Text: Tobacco Use: Never Was smoking cessation packet given? N/A - Patient is a non-smoker or quit >1 year ago. Was a referral initiated?N/A Patient is a non-smoker [facility] 04-21-2024 History of Presen t illness Narrative Radiology Service Progress Note PATIENT NAME: Flakito Amaya DATE OF SERVICE: April 21, 2024 TIME: 4:47 PM PATIENT IDENTITY VERIFICATION COMPLETED USING TWO (2) IDENTIFIERS: Name and Date of confirmed by patient verbally. FALL SCREENING: Has the patient had 2 falls in the last year or 1 fall with injury or currently using an Ambulatory Assistive Device (Walker, Cane, Wheelchair, Crutches, etc.)? No PATIENT GENDER DATA: Male PATIENT RELEVANT IMPLANT DATA REVIEWED: Not Applicable PATIENT PRESENTS WITH AN IMPLANTABLE OR ATTACHED FITNESS STUDIES TEACHER: No RADIOLOGY DEPARTMENT: CT; Exam(s) Completed: Temporal Bones PERIPHERAL IV DATA: Not applicable SIGNED BY: RT Celestino(R) April 21, 2024 4:47 PM documented in this encounter [facility] 03-02-2023 History of Presen t illness Narrative VIRTUAL VISIT I had a virtual visit with Mr. Amaya today for GERD I have communicated my name and active licensure. The patient's identity and physical location were verified at the time of this visit. Either the patient or their legal passenger service representative has been informed of the risks and benefits of -- and alternatives to -- treatment through a remote evaluation and consents to proceed with the evaluation remotely. 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) He used to have occassional heartburn and acid regurgitation Took h2 blockers used to wake up in night feeling as if food is stuck in throat- good improvement with prilosec Since 2011, noticing gradual worsening of dysphagia symptoms were intermittent changed to softer foods and more liquid intake In 08/2021, had EGd done- suspicious for EoE dilation did not make a difference in symptoms Started Prilosec and quit wheat and peanut butter and diary He is noticing good improvement in heartburn and dysphagia PAST MEDICAL HISTORY Diagnosis Date Cleidocranial dysostosis Eosinophilic esophagitis Juvenile rheumatoid arthritis (HCC) Lichen planus PAST SURGICAL HISTORY Procedure Laterality Date TONSILLECTOMY HX TYMPANOPLASTY x2 (last 2002) No family history on file. Social History Tobacco Use Smoking status: Never Smokeless tobacco: Never Vaping Use Vaping Use: Never used Substance Use Topics Alcohol use: Never Drug use: Never Current Outpatient Medications Medication Sig Dispense Refill peg 3350-Electrolytes (GOLYTELY) 236-22.74-6.74 -5.86 gram suspension Refer to printed patient instructions that will be mailed to you. 1 Each 0 ascorbic acid, vitamin C, 125 mg chew calcium citrate/vitamin D3 (CALCIUM CITRATE + D ORAL) loratadine (CLARITIN) 10 mg tablet Take 10 mg by mouth. omeprazole (PRILOSEC) 40 mg capsule omeprazole (PRILOSEC) 20 mg capsule Take 1 capsule by mouth once daily. 90 capsule 3 No current facility-administered medications for this visit. ALLERGIES No Known Allergies REVIEW OF SYSTEMS: PAIN ASSESSMENT: Negative for pain, history of chronic pain, or current treatment for a chronic pain condition. GENERAL: No weight loss, malaise or fevers RESPIRATORY: Negative for cough, hemoptysis, wheezing, COPD, dyspnea or shortness of breath CARDIOVASCULAR: Negative for chest pain, leg swelling, hypertension, CHF or palpitations GI: as above MUSCULOSKELETAL: Negative for joint pain or swelling, back pain or muscle pain SKIN: Negative for lesions, rash, and itching ENDOCRINE: Negative for cold or heat intolerance, polyuria, polydipsia and goiter NEURO: No history of headaches, syncope, paralysis, seizures or tremors PHYSICAL FINDINGS OF NOTE: General - Normal, healthy, cooperative, in no acute distress Able to interact verbally by video conference Psych - ORIENTATION: normal to time place, person and situation Mood/Affect: AFFECT AND MOOD: Normal Head/Neuro - Normal size and shape Facial appearance normal Pulmonary - respiratory effort normal Cardiovascular - patient describes extremities normal, warm, no cyanosis,no clubbing, and no edema Skin - abnormal lesions not visualized Motor - patient seen sitting with Normal appearing strength and coordination REVIEWED ITEMS Prior work up ASSESSMENT AND PLAN 1) Dysphagia- resolved No evidence of EoE 2) GERD- no evidence of Julien's Can adjust PPI dosage/ferquency depending on symptoms 3) CRC screening- due for colonoscopy 2032 I HAVE offered the patient an outpatient appointment for further care at [facility]. I spent a total of 35 minutes on the date of the service which included preparing to see the patient, [id number] patient care, completing clinical documentation, obtaining and/or reviewing separately obtained history, performing a medically appropriate examination, counseling and educating the patient/family/caregiver, ordering medications, tests, or procedures, communicating with other HCPs (not separately reported), independently interpreting results (not separately reported), communicating results to the patient/family/caregiver, and care coordination (not separately reported). Delmy Guevara MD Answers submitted by the patient for this visit: Review of Systems Gastroenterology (Submitted on 03/01/2023) Fever: No Chills: No Night Sweats: No Unitentional Weight Change: No A Cough: No Difficulty Breathing: No Chest Pain: No Belly pain: No A feeling of fullness or have belly pain after eating: No Food getting stuck in your throat or chest after eating: No Nausea - that is, a feeling like you could vomit: No Regurgitation - that is, food or liquid coming back up into your throat or mouth without vomiting, or feel burning behind your breast bone: No Loss of appetite: No To throw up or vomit: No Blood in your stools: No Black tarry stools: No Loose or watery stools: No The feeling like you need to empty your bowels right away - that is, feel as if you would have an accident: No Bowel incontinence - that is, have an accident because you cannot make it to the bathroom in time: No Problems with straining while having bowel movements , hard or lumpy stools, or feel unfinished (that you have not passed all your stool): No Pain in rectum or anus during bowel movements: No Problems with jaundice - that is, yellow discoloration of your skin or eyes, now or in the past: No Problems with having to flush the toilet more than two times due to oily stool, or see stool floating with oil: No documented in this encounter [facility] 02-26-2023 Note PROCEDURE: HIP 2 VIE W > 21YRS LEFT CLINICAL HISTORY: left hip pain COMPARISON: None. FINDINGS: Surgical clips are noted bilaterally in the scrotum or perineum. The left hip joint appears normal with no radiographic changes of arthritis. No fracture or other bony abnormality is identified. [facility] RAD[facility] 02-26-2023 Note PROCEDURE: LUMBAR SP INE 2-3 VIEWS CLINICAL HISTORY: left hip pain COMPARISON: 12/25/14 FINDINGS: Curvature of the lumbar spine is present convex towards the right. This is been noted on previous x-ray from 12/25/2014. No congenital anomaly of the lumbar vertebrae or sacrum is identified. There is normal alignment with no evidence of fractures. Posterior neural arches appear normal. [facility] 01-21-2023 Nurse Note AMBULATORY PATIENT EDUCATION NOTE TOPIC: GI PROCEDURES: Colonoscopy with or without biopsies based on clinical findings Esophagogastroduodenoscopy(EGD) with or without biopies based on clinical findings, removal of polyps or lesions READINESS TO LEARN INSTRUCTION PROVIDED TO: Patient and family member COGNITIVE ABILITY: Alert and oriented PTED MOTIVATION TO LEARN: Interested FAMILY SUPPORT: High - Very involved in pt care IPATIENT LEARNS BEST BY: Individual Instruction Written Instruction - Hand-outs Verbal Instruction FACTORS AFFECTING LEARNING: None PHYSICAL LIMITATIONS AFFECTING LEARNING: None LEARNING RESPONSE METHOD OF INSTRUCTION: Individual instruction PATIENT / FAMILY RESPONSE: Verbalizes understanding of: WORSENING CONDITION-Signs and symptoms of a worsening condition that warrant a call to the physician FOLLOW-UP PLAN: Complete - No need for follow-up SUPPLEMENTAL MATERIAL: Procedure Discharge Instructions REFERRAL (RECOMMENDATION): None PRE OP LEARNING ASSESSMENT PROCEDURE/SURGERY: GI PROCEDURES: Colonoscopy and EGD READINESS TO LEARN COGNITIVE ABILITY: Alert and oriented MOTIVATION TO LEARN: Interested FAMILY SUPPORT: Moderate - Family present but overwhelmed PATIENT LEARNS BEST BY: Individual Instruction Verbal Instruction FACTORS AFFECTING LEARNING: None PHYSICAL LIMITATIONS AFFECTING LEARNING: None Electronically Signed By: Karla Canas RN In Department: GASTROENTEROLOGY documented in this encounter [facility] 01-21-2023 Miscellaneous Notes Scope in egd Scope out colonoscopy documented in this encounter [facility] 04-13-2022 History of Presen t illness Narrative Name: Flakito Amaya CC#: [id number] Date: 04/13/2022 ESOPHAGEAL MANOMETRY TEST Indication: Esophageal Dysphagia Pain Assessment: No pain is present. The patient has been NPO since last evening. A local anesthetic 1 cc 2% Viscous Lidoccaine was instilled into the left nares. The patient was intubated the left nares using a 36 sensor high resolution circumferential solid state manometry catheter The esophageal manometry test was completed. The patient tolerated the test without difficulty. .Serenity Gutierrez RN documented in this encounter [facility] 04-08-2022 History of Presen t illness Narrative New Patient/Consult REASON FOR VISIT Flakito Amaya is a 46 year old male who is scheduled for difficulty swallowing at the consult request of Self. My final recommendations will be communicated back to the requesting physician by the way of the shared medical record, fax, or via US Mail. 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 No GI EVALUATION Reviewed ascorbic acid, vitamin C, 125 mg chew calcium citrate/vitamin D3 (CALCIUM CITRATE + D ORAL) loratadine (CLARITIN) 10 mg tablet Take 10 mg by mouth. omeprazole (PRILOSEC) 40 mg capsule Patient has no known allergies. FAMILY HISTORY Colon Cancer: No Other Cancers: No PMH: Foot pain clubfoot Spine pain Dysplasia -- skeletal dysplasia -- JRA as child -- lichen planus Surgeries: Adenoidectomy (1973), tonsillectomy (1977), right ankle triple arthrodesis (1985), PE tubes x 8 (from 0746-8030); tympanoplasty last one 2002); multiple joint surgeries due to juvenile rheumatoid arthritis, including on left wrist due to restrictive movement; surgery on mastoid bone (hollowed out). Social History Tobacco Use Smoking status: Never Smokeless tobacco: Never Substance Use Topics Alcohol use: Never Drug use: Never REVIEW OF SYSTEMS EyesNegative for vision changes, diplopia or epiphora. Ears, Mouth, nose, throat:No problems Cardiovascular: No Problems Respiratory: Negative for cough, wheezing and shortness of breath Gastrointestinal : as above Musuloskeletal: Denies significant problems; scoliosis Integumentary: no rashes, lesions, or jaundice Neurological: No history of neurologic problems Endocrine: Negative for cold or heat intolerance, polyuria, polydipsia and goiter. Psychiatric: Cooperative and agreeable Allergic/ Immunologic: Negative All others negative. PHYSICAL EXAMINATION BP 130/79 Pulse 83 Ht 5' 0 (1.52m) Wt 121 lb 9.6 oz (55.2kg) SpO2 99% BMI 23.75 kg/(m^2). General - Normal, healthy, cooperative, in no acute distress Able to interact well. Psych - ORIENTATION: normal to time place, person and situation Mood/Affect: AFFECT AND MOOD: Normal Head/Neuro - Normal size and shape Facial appearance normal Pulmonary - respiratory effort normal Extremities- extremities normal, warm, no cyanosis,no clubbing, and no edema Skin - abnormal lesions not visualized Motor - patient seen sitting with Normal appearing strength and coordination Assessment Impression and Plan Dysphagia partial relief with PPI ? EoE ? GERD ESMO Cut down Prilosec to 20 mg every day Annual magnesium and creatinine levels CRC screening- cologard done I spent a total of 30 minutes on the date of the service which included preparing to see the patient, [id number] patient care, completing clinical documentation, obtaining and/or reviewing separately obtained history, performing a medically appropriate examination, counseling and educating the patient/family/caregiver, ordering medications, tests, or procedures, communicating with other HCPs (not separately reported), independently interpreting results (not separately reported), communicating results to the patient/family/caregiver, and care coordination (not separately reported). Delmy Guevara MD April 08, 2022 9:03 AM Answers submitted by the patient for this visit: Review of Systems Gastroenterology (Submitted on 04/06/2022) Fever: No Chills: No Night Sweats: No Unitentional Weight Change: No A Cough: No Difficulty Breathing: No Chest Pain: No Belly pain: No A feeling of fullness or have belly pain after eating: No Food getting stuck in your throat or chest after eating: Yes Nausea - that is, a feeling like you could vomit: No Regurgitation - that is, food or liquid coming back up into your throat or mouth without vomiting, or feel burning behind your breast bone: No Loss of appetite: No To throw up or vomit: No Blood in your stools: No Black tarry stools: No Loose or watery stools: No The feeling like you need to empty your bowels right away - that is, feel as if you would have an accident: No Bowel incontinence - that is, have an accident because you cannot make it to the bathroom in time: No Problems with straining while having bowel movements , hard or lumpy stools, or feel unfinished (that you have not passed all your stool): No Pain in rectum or anus during bowel movements: No Problems with jaundice - that is, yellow discoloration of your skin or eyes, now or in the past: No Problems with having to flush the toilet more than two times due to oily stool, or see stool floating with oil: No documented in this encounter [facility] 04-03-2022 History of Presen t illness Narrative Images from the original note were not included. New Patient/Consult REASON FOR VISIT Flakito Amaya is a 46 year old male who is scheduled for eosinophilic esophagitis at the request of . EGD 02/03/22 Pathology: EGD 08/12/21 Pathology: documented in this encounter [facility] 03-19-2022 Miscellaneous Notes Received / transmitted outside records to patient's chart. See scanned documents tab (consult-GI). Future appt: 04-08-2022 Provider: Dr. Guevara I discussed dept protocol in depth with patient. Explained that medical records are reviewed, and discussed with MD. MD will then determine what procedures, labs, scans are warranted. Arrangements for these appts will be coordinated/scheduled in which patient will be notified. Advised to fax outside medical records to [facility] fax at [phone], or send via e-mail to Patient is a physician; verbalized understanding of all the above. Says no one referred him, and he's only had an EGD with biopsy, but will get all the records from both his PCP and GI MD faxed to confirmed fax #. documented in this encounter [facility] 11-03-2021 Note Is this a pre-proced ure screening test?->No Release to patient->[facility] Evaluation note Diagnosis Suspected COVID-19 virus infection [facility] Esophageal dysphagia- Primary Dysphagia, pharyngoesophageal phase [facility] Diagnosis Esophageal dysphagia Dysphagia, pharyngoesophageal phase [facility] Diagnosis Esophageal dysphagia- Primary Dysphagia, pharyngoesophageal phase Encounter for screening for malignant neoplasm of colon Special screening for malignant neoplasms, colon [facility] Diagnosis Gastroesophageal reflux disease, unspecified whether esophagitis present- Primary Encounter for screening for malignant neoplasm of colon Special screening for malignant neoplasms, colon Esophageal dysphagia Dysphagia, pharyngoesophageal phase documented in this encounter [facility] note* Diagnosis Pain in left hip Pain in joint, pelvic region and thigh documented in this encounter [facility] note* Diagnosis Encounter for screening for malignant neoplasm of colon- Primary Special screening for malignant neoplasms, colon Esophageal dysphagia Dysphagia, pharyngoesophageal phase documented in this encounter [facility] note* Diagnosis Routine general medical examination at a health care facility- Primary Calculus of lower urinary tract, unspecified TORI (juvenile idiopathic arthritis) Other specified inflammatory polyarthropathies documented in this encounter [facility] note* Diagnosis 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 documented in this encounter [facility] note* Diagnosis 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 documented in this encounter [facility] note* Diagnosis 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 Bilateral impacted cerumen Impacted cerumen documented in this encounter [facility] for referral (narrative)* Outpatient Procedure (Routine) - Authorized Specialty Diagnoses / Procedures Referred By Mily kaye Referred To Contact [facility] Diagnoses Esophageal dysphagia Procedures MANOMETRY ESOPHAGEAL ESOPHAGEAL MOTILITY STUDY W/INTERP&[place] [address] [place] [address] [facility] [place] [address] [place] [id number] Referral ID Status Reason Start Date Expiration Date Visits Requested Visits Authorized [id number] Authorized Auto-Generat ed Referral 04/08/2022 04/08/2023 1 1 [facility] for referral (narrative)* Outpatient Procedure (Routine) - Pending Review Specialty Diagnoses / Procedures Referred By Mily kaye Referred To Contact [facility] Diagnoses Esophageal dysphagia Procedures EGD DIAGNOSTIC ESOPHAGOGASTRODUODENOS COPY TRANS[place] [address] [place] [id number] [facility] [place] [id number] Referral ID Status Reason Start Date Expiration Date Visits Requested Visits Authorized [id number] Pending Review Auto-Generat ed Referral 10/02/2022 10/03/2023 1 1 * Outpatient Procedure (Routine) - Pending Review Specialty Diagnoses / Procedures Referred By Mily kaye Referred To Contact [facility] Diagnoses Encounter for screening for malignant neoplasm of colon Procedures COLONOSCOPY SCREENING COLONOSCOPY FLX DX W/[place] [address] [place] [address] [facility] [place] [id number] Referral ID Status Reason Start Date Expiration Date Visits Requested Visits Authorized [id number] Pending Review Auto-Generat ed Referral 10/02/2022 10/03/2023 1 1 [facility] for referral (narrative)* Outpatient Procedure (Routine) - Closed Specialty Diagnoses / Procedures Referred By Mily kaye Referred To Contact [facility] Diagnoses Esophageal dysphagia Procedures EGD DIAGNOSTIC ESOPHAGOGASTRODUODENOS COPY TRANS[place] [address] [place] [address] [facility] [place] [id number] Referral ID Status Reason Start Date Expiration Date V isits Requested Visits Authorized [id number] Closed Auto-Generate d Referral 10/02/2022 10/03/2023 1 1 * Outpatient Procedure (Routine) - Closed Specialty Diagnoses / Procedures Referred By Mily kaye Referred To Contact [facility] Diagnoses Encounter for screening for malignant neoplasm of colon Procedures COLONOSCOPY SCREENING COLONOSCOPY FLX DX W/[place] [address] [place] [address] [facility] [place] [address] [place], [place] [id number] Referral ID Status Reason Start Date Expiration Date V isits Requested Visits Authorized [id number] Closed Auto-Generate d Referral 10/02/2022 10/03/2023 [address] [facility] Outpatient Procedure (Routine) - Closed Specialty Diagnoses / Procedures Referred By Mily kaye Referred To Contact [facility] Diagnoses Esophageal dysphagia Procedures EGD DIAGNOSTIC ESOPHAGOGASTRODUODENOS COPY TRANS[place]AL [place] [address] [place] [address] [facility] [place] [address] [place] [address] Referral ID Status Reason Start Date Expiration Date V isits Requested Visits Authorized [id number] Closed Auto-Generate d Referral 10/02/2022 10/03/2023 [address] 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 Power of Information Security Risk Analyst Medications Administered Section Inactive Administered Medications - up to 3 most recent administrations Medication Order MAR Action Action Date Dose Rate Site meperidine (PF) injection (DEMEROL) X (OR/PROCEDURE) PRN, Starting on Unique 01/21/23 at 1124, Until Unique 01/21/23 at 1124, Intraprocedure Given 01/21/2023 11:24 AM EDT 50 mg meperidine (PF) injection (DEMEROL) X (OR/PROCEDURE) PRN, Starting on Unique 01/21/23 at 1132, Until Unique 01/21/23 at 1132, Intraprocedure Given 01/21/2023 11:32 AM EDT 25 mg midazolam (PF) injection (VERSED) INTRAVENOUS, X (OR/PROCEDURE) PRN, Starting on Unique 01/21/23 at 1124, Until Unique 01/21/23 at 1132, Intraprocedure Given 01/21/2023 11:32 AM EDT 1 mg Given 01/21/2023 11:24 AM EDT 2 mg ondansetron (PF) injection (ZOFRAN) INTRAVENOUS, X (OR/PROCEDURE) PRN, Starting on Unique 01/21/23 at 1134, Until Unique 01/21/23 at 1134, Intraprocedure Given 01/21/2023 11:34 AM EDT 4 mg Summary Purpose Family History No Family History Records FoundNo Family History Records FoundNo Family History Records FoundNo Family History Records Found Additional Source Comments Care Teams (unrecognized sec tion and content) Outsole Caser Relationship Specialty Start Date End Date Nikki Potts MD [address] [place] [address] PCP - General 06/08/19 Chata Sandra, [place] [address] Genetic Counselor Genetics 12/20/14 Ronn Okeefe MD [address] [place] [address] Attending Physician Genetics 12/25/14 Outsole Caser Relationship Specialty Start Date End Date Nikki Potts MD [address] [place] [address] Referring Internal Medicine 03/03/22 Outsole Caser Relationship Specialty Start Date End Date Nikki Potts MD [address] [place] [address] Referring Internal Medicine 03/03/22 Outsole Caser Relationship Specialty Start Date End Date Nikki Potts MD [address] [place] [address] Referring Internal Medicine 03/03/22 Outsole Caser Relationship Specialty Start Date End Date Nikki Potts MD [address] [place] [address] Referring Internal Medicine 03/03/22 Outsole Caser Relationship Specialty Start Date End Date Nikki Potts MD [address] [place] [address] Referring Internal Medicine 03/03/22 Outsole Caser Relationship Specialty Start Date End Date Nikki Potts MD [address] [place] [address] Referring Internal Medicine 03/03/22 Outsole Caser Relationship Specialty Start Date End Date Nikki Potts MD [address] [place] [address] PCP - General 06/08/19 Chata Sandra, [place], [place] [id number] Genetic Counselor Genetics 12/20/14 Ronn Okeefe MD [address] [place] [address] Attending Physician Genetics 12/25/14 Outsole Caser Relationship Specialty Start Date End Date Nikki Potts MD [address] [place] [address] PCP - General 06/08/19 Chata Sandra [place], [place] [id number] Genetic Counselor Genetics 12/20/14 Ronn Okeefe MD [address] [place] [address] Attending Physician Genetics 12/25/14 Outsole Caser Relationship Specialty Start Date End Date Nikki Potts MD [address] [place] [address] Referring Internal Medicine 03/03/22 Outsole Caser Relationship Specialty Start Date End Date Nikki Potts MD [address] [place] [address] PCP - General 06/08/19 Chata Sandra [place], [place] [id number] Genetic Counselor Genetics 12/20/14 Ronn Okeefe MD [address] [place], [place] Attending Provider Genetics 12/25/14 Outsole Caser Relationship Specialty Start Date End Date Nikki Potts MD [address] [place] [address] Referring Internal Medicine 03/03/22 Outsole Caser Relationship Specialty Start Date End Date Nikki Potts MD [address] [place] [address] Referring Internal Medicine 03/03/22 Nikki Potts MD [facility] [place] [address] Referring Internal Medicine 06/02/24 Outsole Caser Relationship Specialty Start Date End Date Nikki Potts MD [facility] [place] [address] Referring Internal Medicine 03/03/22 Nikki Potts MD [facility] [place] [address] Referring Internal Medicine 06/02/24 Outsole Caser Relationship Specialty Start Date End Date Nikki Potts MD [address] [place] [address] PCP - General 06/08/19 Chata Sandra, [place], [place] [phone] Genetic Counselor Genetics 12/20/14 Ronn Okeefe MD [address] [place], [place] Attending Provider Genetics 12/25/14 Outsole Caser Relationship Specialty Start Date End Date Nikki Potts MD [address] [place] [address] Referring Internal Medicine 03/03/22 Nikki Potts MD [address] [place] [address] Referring Internal Medicine 06/02/24 Source Comments (unrecognize d section and content) In the event this informatio n is protected by the Federal Confidentiality of Alcohol and Drug Abuse Patient Records regulations: The Federal rules restrict any use of the information to criminally investigate or prosecute any alcohol or drug abuse patient.[facility] the event this information is protected by the Federal Confidentiality of Alcohol and Drug Abuse Patient Records regulations: The Federal rules restrict any use of the information to criminally investigate or prosecute any alcohol or drug abuse patient.[facility] the event this information is protected by the Federal Confidentiality of Alcohol and Drug Abuse Patient Records regulations: The Federal rules restrict any use of the information to criminally investigate or prosecute any alcohol or drug abuse patient.[facility] the event this information is protected by the Federal Confidentiality of Alcohol and Drug Abuse Patient Records regulations: The Federal rules restrict any use of the information to criminally investigate or prosecute any alcohol or drug abuse patient.[facility] the event this information is protected by the Federal Confidentiality of Alcohol and Drug Abuse Patient Records regulations: The Federal rules restrict any use of the information to criminally investigate or prosecute any alcohol or drug abuse patient.[facility] the event this information is protected by the Federal Confidentiality of Alcohol and Drug Abuse Patient Records regulations: The Federal rules restrict any use of the information to criminally investigate or prosecute any alcohol or drug abuse patient.[facility] the event this information is protected by the Federal Confidentiality of Alcohol and Drug Abuse Patient Records regulations: The Federal rules restrict any use of the information to criminally investigate or prosecute any alcohol or drug abuse patient.[facility] the event this information is protected by the Federal Confidentiality of Alcohol and Drug Abuse Patient Records regulations: The Federal rules restrict any use of the information to criminally investigate or prosecute any alcohol or drug abuse patient.[facility] the event this information is protected by the Federal Confidentiality of Alcohol and Drug Abuse Patient Records regulations: The Federal rules restrict any use of the information to criminally investigate or prosecute any alcohol or drug abuse patient.[facility] the event this information is protected by the Federal Confidentiality of Alcohol and Drug Abuse Patient Records regulations: The Federal rules restrict any use of the information to criminally investigate or prosecute any alcohol or drug abuse patient.[facility] the event this information is protected by the Federal Confidentiality of Alcohol and Drug Abuse Patient Records regulations: The Federal rules restrict any use of the information to criminally investigate or prosecute any alcohol or drug abuse patient.[facility] Hospital[facility] the event this information is protected by the Federal Confidentiality of Alcohol and Drug Abuse Patient Records regulations: The Federal rules restrict any use of the information to criminally investigate or prosecute any alcohol or drug abuse patient.[facility] Hospital[facility] the event this information is protected by the Federal Confidentiality of Alcohol and Drug Abuse Patient Records regulations: The Federal rules restrict any use of the information to criminally investigate or prosecute any alcohol or drug abuse patient.[facility] Hospital[facility] the event this information is protected by the Federal Confidentiality of Alcohol and Drug Abuse Patient Records regulations: The Federal rules restrict any use of the information to criminally investigate or prosecute any alcohol or drug abuse patient.[facility] Reason for Visit (unrecogniz ed section and content) Reason Comments Consult Reason Comments Eosinophilic Esophagitis Reason Onset Date Comments Procedure 04/13/2022 Manometry Esopha geal Specialty Diagnoses / Procedures Referred By Contac t Referred To Contact [facility] Diagnoses Esophageal dysphagia Procedures MANOMETRY ESOPHAGEAL ESOPHAGEAL MOTILITY STUDY W/INTERP&[place] [address] [place] [address] [facility] [place] [address] [place] [address] Referral ID Status Reason Start Date Expiration Date V isits Requested Visits Authorized [id number] Closed Auto-Generate d Referral 04/08/2022 04/08/2023 1 1 Reason Comments Follow Up Specialty Diagnoses / Procedures Referred By Contac t Referred To Contact RADIO CT SCAN [facility] Diagnoses Chronic mastoiditis, right ear CT Mastoids WO Contrast Chronic mastoiditis, 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] Order in Scanned Docs Procedures CT ORBIT SELLA/POST FOSSA/EAR W/O CONTRAST MATRL CT WO QUIN 400 Jelani Clements MD [address] [facility] [address] [place] [address] Referral ID Status Reason Start Date Expiration Date Visits Re quested Visits Authorized [id number] Closed 04/06/2024 05/21/2024 1 1 Reason Comments Ear Problem (unrecognized sect ion and content) No Status Records FoundNo Status Records FoundNo Status Records FoundNo Status Records Found INFORMATION SOURCE (unrecogn ized section and content) DATE CREATED AUTHOR 02/17/2025 [facility] DATE CREATED AUTHOR AUTHOR'S ORGANIZ ATION 04/28/[address] [facility] DATE CREATED AUTHOR AUTHOR'S ORGANIZ ATION 05/02/2025 [facility] DATE CREATED AUTHOR AUTHOR'S ORGANIZ ATION 05/06/2025 [facility] FOR RECORDS PERTAINING TO PATIENTS WHO ARE OR HAVE BEEN ENROLLED IN A CHEMICAL DEPENDENCY/SUBSTANCEABUSE PROGRAM, SOME INFORMATION MAY BE OMITTED. This clinical summary was aggregated from multiple sources. Caution should be exercised in using it in the provision of clinical care. This summary normalizes information from multiple sources, and as a consequence, information in this document may materially change the coding, format and clinical context of patient data. In addition, data may be omitted in some cases. CLINICAL DECISIONS SHOULD BE BASED ON THE PRIMARY CLINICAL RECORDS. [facility] [facility] provides no warranty or guarantee of the accuracy or completeness of information in this document.
--- NOTE | 2025-06-19 07:35 | BD_ITS ---
PROCEDURE: DEXA BONE DENSITY STUDY N/A REASON FOR EXAM: M, age 49 y/o . Postmenopausal. TECHNIQUE: Procedure Code: BDDBD Modality: DX Procedure: DEXA BONE DENSITY STUDY COMPARISON: None FINDINGS: BMD and T-SCORES Lumbar spine: 0.866 g/cm2, T-score -2.3 Levels: L1 through L4 Left femoral neck: 0.596 g/cm2, T-score -2.5 Femoral neck comparison data not recommended for monitoring change. Left total hip: 0.733 g/cm2, T-score -2.0 Right femoral neck: 0.616 g/cm2, T-score -2.3 Femoral neck comparison data not recommended for monitoring change. Right total hip: 0.710 g/cm2, T-score -2.1 The World Health Organization has defined the following categories based on bone density: Normal bone density: T-score equal to or greater than -1.0 Osteopenia: T-score between -1.0 and -2.5 Osteoporosis: T-score equal to or less than -2.5 FRAX (or Comparable) Fracture Risk Assessment: 10 Year Probability of Fracture: Major Osteoporotic Fracture: 14% Hip Fracture: 2.4% (Note: FRAX is not to be reported in setting of normal range bone density, osteoporosis on DEXA, known history of osteoporosis, prior osteoporotic hip or vertebral fracture, or for any patient undergoing pharmacological treatment for bone loss.) The National Osteoporosis Foundation (NOF) recommends pharmacological treatment for patients with a FRAX 10-year risk of 3% or higher for a hip fracture, or 20% or higher for a major osteoporotic fracture, to prevent osteoporosis and reduce fracture risk. The patient does meet the pharmacological treatment recommendations for prevention of osteoporosis. BD/Dexa Bone Density Study IMPRESSION: OSTEOPOROSIS. Recommend follow-up as clinically warranted. Reading Location: [facility]
== END | disposition home or self-care (01) ==
LOC: OPBD 07:29
PROVIDERS: PCP Family Medicine; Referring Provider Family Medicine; Visit Provider Family Medicine
DX: Z00.00 Encounter for general adult medical examination without abnormal findings (principal); Q74.0 Other congenital malformations of upper limb(s), including shoulder girdle
CPT/HCPCS: 77080